=== PATIENT | male | born 1985 | race African-American/Black ===

== ENCOUNTER 2022-10-06 10:26 | Inpatient (IN) ==
[2022-10-06 11:32] LABS: Basophils # (auto) 0.03 K/uL (0-0.2); Basophils % (auto) 0.2 %; Eosinophils # (auto) 0.02 K/uL (0-0.50); Eosinophils % (auto) 0.2 %; Hematocrit (blood only) 41.4 % (42.0-52.0); Hemoglobin 13.9 g/dl (14.0-18.0); Immature Granulocytes # (auto) 0.07 K/uL (0.01-0.20); Immature Granulocytes % (auto) 0.6 %; Lymphocytes # (auto) 1.34 K/uL (1.2-3.4); Lymphocytes % (auto) 10.7 %; Mean Corpuscular Hemoglobin 28.7 pg (25.0-34.0); Mean Corpuscular Hgb Conc 33.6 g/dL (32.0-36.0); Mean Corpuscular Volume 85.4 fL (80.0-100.0); Mean Platelet Volume 11.8 fL (9.4-12.4); Monocytes # (auto) 1.07 K/uL (0.11-0.59); Monocytes % (auto) 8.5 %; Neutrophils % (auto) 79.8 %; Platelet Count 236 K/uL (130-400); RDW Coefficient of Variation 14.5 % (11.5-14.5); RDW Standard Deviation 45.1 fL (36.4-46.3); Red Blood Count 4.85 M/uL (4.70-6.10); White Blood Count 12.53 K/ul (4.8-10.8)
[2022-10-06 11:36] LABS: Partial Thromboplastin Ratio 1.1; Partial Thromboplastin Time 29.9 Seconds (21.0-31.0)
[2022-10-06 11:51] LABS: Alanine Aminotransferase 30 U/L (7-52); Albumin Globulin Ratio 1.1 (0.9-2); Alkaline Phosphatase 69 U/L (34-104); Anion Gap 9 (3-11); Aspartate Aminotransferase 18 U/L (13-39); BUN Creatinine Ratio 10.9 (10-20); Bilirubin,Total 1.7 mg/dl (0.2-1.0); Blood Urea Nitrogen 19 mg/dl (6-23); Calcium 10.2 mg/dl (8.6-10.3); Carbon Dioxide 28 mmol/L (21-32); Chloride 100 mmol/L (98-107); Est GFR (African American) 56.4 ml/min; Est GFR (Non-African American) 48.7 ml/min; Globulin 3.8 gm/dl (2.5-4.0); Glucose 108 mg/dl (70-99(Fasting)); Potassium 3.1 mmol/L (3.5-5.1); Sodium 137 mmol/L (136-145); Total Protein 7.8 gm/dl (6.0-8.3)
--- NOTE | 2022-10-06 12:11 | XRay Report ---
XR chest 1V not portable CLINICAL HISTORY: swollen TECHNIQUE: Single frontal radiograph of the chest was obtained. Comparison: None available at the time of this dictation. FINDINGS: No lines and tubes are seen. The cardiomediastinal silhouette is normal. The lungs are clear. No evid ence of pleural effusion or pneumothorax. IMPRESSION: No acute chest disease. ACT 112: Negative or not required by law. Electronically signed by: Aguilar Jacobson M.D. 10/06/2022 12:09 PM
[2022-10-06] MEDS ORDERED: methylPREDNISolone 125 MG/2 ML VIAL IV STA (13:17)
[2022-10-06] MEDS ORDERED: SODIUM CHLORIDE 0.9% 500 ML IV ONE ×2 (13:17→15:46)
[2022-10-06] MEDS ORDERED: oxyCODONE/ACETAMINOPHEN 5mg/325mg TAB PO STA (13:17)
--- NOTE | 2022-10-06 13:22 | Emergency Department Note ---
Impression & Plan Hypertensive urgency, Hypokalemia, Acute renal failure, Gout attack ED Provider Note NAME: JULIO GALINDO AGE: 37 SEX: M ARRIVES VIA: Walk-In INFORMANT: Patient ED PROVIDER(S): Monty Lopes MD CHIEF COMPLAINT: Left knee pain and ankle pain, gout PLAN: Disposition: Home MEDICAL DECISION MAKING: The patient is a 37-year-old gentleman with a past medical history hypertension, gout who presents to the emergency department via walk-in for evaluation of left knee pain and ankle pain which has been worsening and feels reminiscent of his flares of gout. The patient reports his left knee began to hurt on Thursday and his left ankle began to hurt last night. Patient reports he is able to walk but it is painful. He denies any fevers, chills, cough congestion, GI/ symptoms. He reports he has been out of his medications over the past month which he believes is lisinopril and amlodipine for his blood pressure and allopurinol for his gout. Patient reports he recently relocated to the [facility] in May moving from [place] where he had been on assistance there and has yet to obtain health insurance. He was requesting to meet with the onsite case manager. Our onsite case manager did meet with him it was understood that he is unsure of if he is going to stay in the area. Thus, his options are limited but he may be able to follow-up with [facility]. Of note, the patient did arrive to emergency department during time of high volume, acuity and prolonged emergency department waiting times. Critical pathways initiated from triage. On my evaluation the patient is in no acute distress, with blood pressure 220/150s and heart in the 100s and vital signs otherwise stable. He appears clinically dry. He has mild swelling and warmth of the left knee and less so warmth and swelling of the lateral malleolus of the left ankle. He has full range of motion of the left knee without difficulty though some discomfort. He has limited range of motion of left ankle due to pain. Distal PMS is intact. EKG without overt acute ischemia. Chest x-ray negative for acute cardiopulmonary process. WBC 12.5K nonspecific. H/H 13.9/41, without prior values for comparison. Platelets within normal limits. Chemistry without metabolic acidosis. Potassium 3.1 electrolytes otherwise unremarkable. Creatinine 1.75 without prior for comparison. Total room 1.7, nonspecific as LFTs otherwise normal. Patient's uric acid is elevated at 10.1 consistent with patient's history of gout in his flare of symptoms. Plain films of the left knee and ankle negative for fracture or dislocation. With soft tissue swelling noted. The patient was reevaluated and his results were discussed with his partner at the bedside. We did discuss his creatinine which per our discussion may be approximate to his prior values though cannot say definitively. He reports he had been told several months ago during a hospital visit in [place] that his kidneys were not normal and that he should hydrate more but he does not any know any more details about this. We were able to obtain his recent prescriptions from for those of his bottles that a family member texted and the patient is on 40 mg of lisinopril daily, 10 mg of atorvastatin daily, and 5 mg of amlodipine daily. The patient's blood pressure remained persistently elevated in the 210s-220s-/130-150s albeit asymptomatic. We did discuss option for admission versus close outpatient follow-up with [facility]. However we did recognize that this may be challenging given his current status without insurance and establish primary care. Ultimately the patient and his partner agree with plan for admission for hypertensive urgency and further evaluation of the patient's renal insufficiency. Treatment initiated with IV labetalol. Oral potassium supplementation provided. The patient had also been treated for his gout with Solu-Medrol and Percocet for pain. Case was discussed with Dr. Turner, [facility] hospitalist, who will evaluate the patient for admission. Triage Nursing notes reviewed and agree them. Prior/outside medical records reviewed Vital Signs: reviewed Differential diagnosis: Fracture, subluxation, dislocation, contusion, ligamentous injury, neurovascular, compartment syndrome, rhabdomyolysis, as well as other pathologies. ER treatment provided: See below. Diagnostics interpreted by me: ECG: Sinus tachycardia, 106 bpm, no ectopy, LVH, no overt ST elevation or depression, QTc 462, QRS 98 Cardiac Monitoring: An order for continuous cardiac monitoring was placed and demonstrated Sinus tachycardia, 106 bpm, no ectopy Laboratory studies: See below Imaging studies: See below Consultation(s): Case was discussed with Sarwat Nieves hospitalist, who will evaluate the patient for admission. HPI: The patient is a 37-year-old gentleman with a past medical history hypertension, gout who presents to the emergency department via walk-in for evaluation of left knee pain and ankle pain which has been worsening and feels reminiscent of his flares of gout. The patient reports his left knee began to hurt on Thursday and his left ankle began to hurt last night. Patient reports he is able to walk but it is painful. He denies any fevers, chills, cough congestion, GI/ symptoms. He reports he has been out of his medications over the past month which he believes is lisinopril and amlodipine for his blood pressure and allopurinol for his gout. Patient reports he recently relocated to the [facility] in May moving from [place] where he had been on assistance there and has yet to obtain health insurance. He was requesting to meet with the onsite case manager. Our onsite case manager did meet with him it was under stood that he is unsure of if he is going to stay in the area. Thus, his options are limited but he may be able to follow-up with [facility]. ROS: See above HPI for pertinent positives & negatives. A total of 10 systems reviewed and were otherwise negative. VITALS:See Below PHYSICAL EXAMINATION: GENERAL: Awake, alert, well-appearing, in no distress HENT: Normocephalic, atraumatic. Oropharynx with dry mucous membranes and otherwise unremarkable. EYES: Normal conjunctiva. Sclera non-icteric. NECK: Supple. No nuchal rigidity. FROM. No JVD. RESPIRATORY: Clear to auscultation. CARDIAC: Regular rate, normal rhythm. Extremities warm and well perfused. Pulses equal. ABDOMEN: Soft, non-distended. No tenderness to palpation. No rebound or guarding. No masses. RECTAL: Deferred. MUSCULOSKELETAL: Chest examination reveals no tenderness. The back is symmetrical on inspection without obvious abnormality. There is no CVA tende rness to palpation. mild swelling and warmth of the left knee and less so warmth and swelling of the lateral malleolus of the left ankle. He has full range of motion of the left knee without difficulty though some discomfort. He has limited range of motion of left ankle due to pain. Distal PMS is intact. LOWER EXTREMITIES: Calves are equal size bilaterally and non-tender. No edema. No discoloration. NEURO: Normal sensorium. No sensory or motor deficits noted. SKIN: No rash or jaundice noted. ED COURSE: Critical Care: I have personally spent greater than 35 minutes of critical care time in the direct management of this patient. This includes bedside care, interpretation of diagnostic studies, and testing, discussion with consultants, patient, and family members, and other required patient management activities. This 35 minutes is in excess of all separately billable procedures. Monty Lopes MD Past Med/Surg History Medical History Gout Hyperlipidemia Hypertension Surgical History No pertinent past surgical history Family History Other Family history non-contributory Social History Smoking Status: Never smoker Do You Dip or Chew Tobacco: No; Hx Alcohol Use: No Hx Substance Use: No Preferred Language: Hungarian Current Living Situation: Spouse current occupational status: employed Feels Safe at Home: Yes Allergies Allergies Allergy/AdvReac Type Severity Reaction Status Date / Time No Known Allergies Allergy Unverified 10/06/22 13:58 Home Meds Home Medications Medication Instructions Recorded Confirmed allopurinol 300 mg tablet 300 mg PO DAILY 10/06/22 10/06/22 amlodipine 5 mg tablet 5 mg PO DAILY 10/06/22 10/06/22 atorvastatin 20 mg tablet 20 mg PO DAILY 10/06/22 10/06/22 lisinopril 40 mg tablet 40 mg PO DAILY 10/06/22 10/06/22 Results & Data (ED) Vital Signs Vital Signs - 24 hr 10/06/22 10:43 10/06/22 13:44 10/06/22 15:37 Temperature 36.8 C Temperature Source Oral Pulse Rate 107 H Pulse Rate [Apical] 89 102 H Respiratory Rate 18 16 Blood Pressure 229/153 H Blood Pressure [Right Arm] 218/134 H Blood Pressure Mean 178 Blood Pressure Mean [Right Arm] 162 Blood Pressure Position Sitting Pulse Oximetry 98 98 96 Oxygen Delivery Method Room Air Room Air Room Air Sepsis Recent Fever Within 48 Hours No Sepsis New/Unexplained Change in Mental Status No Sepsis Action Taken by Nursing No Action Required 10/06/22 16:43 10/06/22 17:00 10/06/22 17:22 Temperature Temperature Source Pulse Rate 100 H 97 H Pulse Rate [Apical] 97 H Respiratory Rate 18 Blood Pressure 216/139 H 208/144 H Blood Pressure [Right Arm] 208/144 H Blood Pressure Mean Blood Pressure Mean [Right Arm] 165 Blood Pressure Position Pulse Oximetry 98 Oxygen Delivery Method Room Air Sepsis Recent Fever Within 48 Hours Sepsis New/Unexplained Change in Mental Status Sepsis Action Taken by Nursing 10/06/22 17:26 Temperature Temperature Source Pulse Rate Pulse Rate [Apical] Respiratory Rate Blood Pressure Blood Pressure [Right Arm] Blood Pressure Mean Blood Pressure Mean [Right Arm] Blood Pressure Position Pulse Oximetry Oxygen Delivery Method Room Air Sepsis Recent Fever Within 48 Hours Sepsis New/Unexplained Change in Mental Status Sepsis Action Taken by Nursing Laboratory Data Attestation: I reviewed the patient's lab results. 10/06/22 11:10 10/06/22 11:10 Lab Results 10/06/22 10/06/22 10/06/22 Range/Units 11:10 11:10 11:10 WBC 12.53 H (4.8-10.8) K/ul RBC 4.85 (4.70-6.10) M/uL Hgb 13.9 L (14.0-18.0) g/dl Hct 41.4 L (42.0-52.0) % MCV 85.4 (80.0-100.0) fL MCH 28.7 (25.0-34.0) pg MCHC 33.6 (32.0-36.0) g/dL RDW Std Deviation 45.1 (36.4-46.3) fL RDW Coeff of Larry 14.5 (11.5-14.5) % Plt Count 236 (130-400) K/uL MPV 11.8 (9.4-12.4) fL Immature Gran % (Auto) 0.6 % Neut % (Auto) 79.8 % Lymph % (Auto) 10.7 % Lawrence % (Auto) 8.5 % Eos % (Auto) 0.2 % Baso % (Auto) 0.2 % Neut # (Auto) 10.00 H (1.40-6.50) K/uL Lymph # (Auto) 1.34 (1.2-3.4) K/uL Lawrence # (Auto) 1.07 H (0.11-0.59) K/uL Eos # (Auto) 0.02 (0-0.50) K/uL Baso # (Auto) 0.03 (0-0.2) K/uL Immature Gran # (Auto) 0.07 (0.01-0.20) K/uL APTT 29.9 (21.0-31.0) Seconds PTT Ratio 1.1 Sodium 137 (136-145) mmol/L Potassium 3.1 L (3.5-5.1) mmol/L Chloride 100 (98-107) mmol/L Carbon Dioxide 28 (21-32) mmol/L Anion Gap 9 (3-11) BUN 19 (6-23) mg/dl Creatinine 1.75 H (0.6-1.4) mg/dl Est Cr Clr Drug Dosing Not Reportable Est GFR ( Amer) 56.4 ml/min Est GFR (Non-Af Amer) 48.7 ml/min BUN/Creatinine Ratio 10.9 (10-20) Glucose 108 H (70-99(Fasting)) mg/dl Uric Acid 10.1 H (2.6-7.2) mg/dl Calcium 10.2 (8.6-10.3) mg/dl Phosphorus 2.4 L (2.5-4.9) mg/dl Magnesium 1.9 (1.7-2.4) mg/dl Total Bilirubin 1.7 H (0.2-1.0) mg/dl AST 18 (13-39) U/L ALT 30 (7-52) U/L Alkaline Phosphatase 69 (34-104) U/L Total Protein 7.8 (6.0-8.3) gm/dl Albumin 4.0 (3.4-5.0) gm/dl Globulin 3.8 (2.5-4.0) gm/dl Albumin/Globulin Ratio 1.1 (0.9-2) TSH (0.300-4.500) uIu/ml 10/06/22 Range/Units 11:10 WBC (4.8-10.8) K/ul RBC (4.70-6.10) M/uL Hgb (14.0-18.0) g/dl Hct (42.0-52.0) % MCV (80.0-100.0) fL MCH (25.0-34.0) pg MCHC (32.0-36.0) g/dL RDW Std Deviation (36.4-46.3) fL RDW Coeff of Larry (11.5-14.5) % Plt Count (130-400) K/uL MPV (9.4-12.4) fL Immature Gran % (Auto) % Neut % (Auto) % Lymph % (Auto) % Lawrence % (Auto) % Eos % (Auto) % Baso % (Auto) % Neut # (Auto) (1.40-6.50) K/uL Lymph # (Auto) (1.2-3.4) K/uL Lawrence # (Auto) (0.11-0.59) K/uL Eos # (Auto) (0-0.50) K/uL Baso # (Auto) (0-0.2) K/uL Immature Gran # (Auto) (0.01-0.20) K/uL APTT (21.0-31.0) Seconds PTT Ratio Sodium (136-145) mmol/L Potassium (3.5-5.1) mmol/L Chloride (98-107) mmol/L Carbon Dioxide (21-32) mmol/L Anion Gap (3-11) BUN (6-23) mg/dl Creatinine (0.6-1.4) mg/dl Est Cr Clr Drug Dosing Est GFR ( Amer) ml/min Est GFR (Non-Af Amer) ml/min BUN/Creatinine Ratio (10-20) Glucose (70-99(Fasting)) mg/dl Uric Acid (2.6-7.2) mg/dl Calcium (8.6-10.3) mg/dl Phosphorus (2.5-4.9) mg/dl Magnesium (1.7-2.4) mg/dl Total Bilirubin (0.2-1.0) mg/dl AST (13-39) U/L ALT (7-52) U/L Alkaline Phosphatase (34-104) U/L Total Protein (6.0-8.3) gm/dl Albumin (3.4-5.0) gm/dl Globulin (2.5-4.0) gm/dl Albumin/Globulin Ratio (0.9-2) TSH 1.618 (0.300-4.500) uIu/ml Administered Medications Discontinued Medications Sodium Chloride (Nss) 500 mls @ 999 mls/hr IV .Q31M ONE Stop: 10/06/22 13:47 Last Infusion: 10/06/22 14:16 Dose: 0 mls/hr Documented By: Admin: 10/06/22 13:37 Dose: 999 mls/hr Documented By: JERRY Sodium Chloride (Nss) 500 mls @ 999 mls/hr IV .Q31M ONE Stop: 10/06/22 16:16 Last Admin: 10/06/22 16:52 Dose: 999 mls/hr Documented By: ANDREWS Labetalol HCl (Labetalol Hcl Iv 5 Mg/Ml 20ml) 10 mg IV NOW STA Stop: 10/06/22 15:47 Last Admin: 10/06/22 17:14 Dose: Not Given Documented By: ANDREWS Labetalol HCl (Labetalol Hcl Iv 5 Mg/Ml 20ml) 20 mg IV NOW STA Stop: 10/06/22 16:40 Last Admin: 10/06/22 16:43 Dose: 20 mg Documented By: ANDREWS Co-signed By: SHELLY Methylprednisolone (Methylprednisolone 125 Mg/2 Ml Vial) 125 mg IV NOW STA Stop: 10/06/22 13:18 Last Admin: 10/06/22 13:37 Dose: 125 mg Documented By: JERRY Oxycodone/Acetaminophen (Oxycodone/Acetaminophen 5mg/325mg Tab) 1 tab PO NOW STA Stop: 10/06/22 13:18 Last Admin: 10/06/22 13:37 Dose: 1 tab Documented By: JERRY Potassium Chloride (Potassium Chloride Crtab 20 Meq Tabcr) 40 meq PO NOW STA Stop: 10/06/22 15:51 Last Admin: 10/06/22 16:52 Dose: 40 meq Documented By: ANDREWS Imaging Data Radiologist's Impression: Chest X-Ray 10/06/22 10:45 XR chest 1V not portable CLINICAL HISTORY: swollen TECHNIQUE: Single frontal radiograph of the chest was obtained. Comparison: None available at the time of this dictation. FINDINGS: No lines and tubes are seen. The cardiomediastinal silhouette is normal. The lungs are clear. No evidence of pleural effusion or pneumothorax. IMPRESSION: No acute chest disease. ACT 112: Negative or not required by law. Electronically signed by: Aguilar Jacobson M.D. 10/06/2022 12:09 PM Ankle X-Ray 10/06/22 13:17 LEFT ANKLE 3 VIEWS CLINICAL HISTORY: Left ankle pain and swelling. FINDINGS: 3 views of the left ankle are obtained. No prior studies are available for comparison at the time of dictation. The skeletal structures are well mineralized. No fracture is seen. The ankle mortise is intact. There is no joint effusion. Soft tissue edema is present throughout the left lower extremity, greatest around the ankle joint. IMPRESSION: Soft tissue swelling with no acute bony abnormality identified. Electronically signed by: Kenneth Wong M.D. 10/06/2022 2:14 PM Knee X-Ray 10/06/22 13:17 XR knee LT 3V CLINICAL HISTORY: pain swelling, gout TECHNIQUE: 3 views of the left knee were obtained. Comparison: None available at the time of this dictation. FINDINGS: There is no evidence of an acute fracture. Joint spaces are well-preserved. No joint effusion is seen. Soft tissue swelling is seen about the knee. IMPRESSION: Soft tissue swelling without evidence of underlying bony abnormality. ACT 112: Negative or not required by law. Electronically signed by: Aguilar Jacobson M.D. 10/06/2022 2:10 PM Discharge Plan Visit Data Chief Complaint: Knee Injury/Pain Stated Complaint: KNEE PAIN, SWOLLEN ED Provider: Monty Lopes Discharge Problem: Hypertensive urgency, Hypokalemia, Acute renal failure, Gout attack Patient Disposition: Admitted As Inpatient Discharge Instructions Interventions: ED Discharge Assessment Last Done: 10/06/22 17:26 Forms Stand Alone Forms: Work/School Release (ED), [facility] [employer] Prescriptions Prescriptions: No Action atorvastatin 20 mg Tablet 20 mg PO DAILY amlodipine 5 mg Tablet 5 mg PO DAILY allopurinol 300 mg Tablet 300 mg PO DAILY lisinopril 40 mg Tablet 40 mg PO DAILY Referrals Referrals: PCP,NO [Primary Care Provider] - Gout attack Qualifiers: Gout site: multiple sites Gout etiology: unspecified cause Qualified Code(s): M10.9 - Gout, unspecified
--- NOTE | 2022-10-06 14:12 | XRay Report ---
XR knee LT 3V CLINICAL HISTORY: pain swelling, gout TECHNIQUE: 3 views of the left knee were obtained. Comparison: None available at the time of this dictation. FINDINGS: There is no evidence of an acute fracture. Joint spaces are well-preserved. No joint effusion is seen . Soft tissue swelling is seen about the knee. IMPRESSION: Soft tissue swelling without evidence of underlying bony abnormality. ACT 112: Negative or not required by law. Electronically signed by: Aguilar Jacobson M.D. 10/06/2022 2:10 PM
--- NOTE | 2022-10-06 14:16 | XRay Report ---
LEFT ANKLE 3 VIEWS CLINICAL HISTORY: Left ankle pain and swelling. FINDINGS: 3 views of the left ankle are obtained. No prior studies are available for comparison at th e time of dictation. The skeletal structures are well mineralized. No fracture is seen. The ankle mor tise is intact. There is no joint effusion. Soft tissue edema is present throughout the left lower ex tremity, greatest around the ankle joint. IMPRESSION: Soft tissue swelling with no acute bony abnormality identified. Electronically signed by: Kenneth Wong M.D. 10/06/2022 2:14 PM
[2022-10-06 14:20] LABS: Uric Acid 10.1 mg/dl (2.6-7.2)
[2022-10-06] MEDS ORDERED: LABETALOL HCL IV 5 MG/ML 20ML IV STA ×3 (15:46→17:45)
[2022-10-06] MEDS ORDERED: POTASSIUM CHLORIDE CRTAB 20 MEQ TABCR PO STA (15:50)
--- NOTE | 2022-10-06 16:08 | History & Physical Report ---
Date of Service October 06, 2022 Assessment & Plan (1) Hypertensive urgency: Plan: Labetalol started in the ER. Patient has been noncompliant with his lisinopril 40mg and amlodipine 5mg per home regimen for the past month. He denies any chest pain or trouble breathing and denies headache. No stroke symptoms present. He does have evidence of acute kidney injury, however, baseline creatinine is unknown. ACEI contraindicated in setting of renal failure but aniceto l restart CCB now. Goal BP lowered to <180 systolic in the next few hours. Cont labetalol and other parenteral agents to help with this. If no improvement, consider nitroglycerin paste to chest wall. Would strongly consider the addition of a low dose diuretic to lisinopril at discharge, preferably one that is listed on [employer] $4 list given financial restrictions. (2) Gout attack: Plan: Pain improved with IV solumedrol in the ER and percocet. Will cont with prednisone 60mg Po daily with taper over 10 days, and oxycodone PRN pain. Cont with scheduled Tylenol. Follow-up with primary care and restart allopurinol at discharge with low purine diet modifications. (3) Acute renal failure: Plan: Unknown baseline creatinine with current creatinine 1.75. Hydrate with IVF overnight. Repeat BMP in am. (4) Hypokalemia: Plan: Replace and repeat in am. (5) Hyperlipidemia: Plan: h/o atorvastatin usage. Hold on restarting this for now to minimize any medications interactions or side effects while initiating acute treatment. Recommend establishing care in the area and following up with a primary care physician at discharge. Will perform screening for diabetes with A1C given risk factors for this including obesity, hypertension and hyperlipidemia. Padma Full Code Dispo-to PCU I spent a total of75 minutes coordinating, documenting, and providing care for this patient excluding time spent in the performance of separately billed services DO [facility] Hospitalist History of Present Illness Chief Complaint: knee injury/pain Primary Care Provider: NO PCP 37 yo M with a h/o gout and hypertension presents with worsening left knee and ankle pain consistent with a gout flare over the past 24 hours. He is unable to walk on the left foot 2/2 pain. He reports being out of his lisinopril and amlodipine in the past month. He has also been out of his allopurinol. Blood pressure is currently 218/134 and labetalol 10mg IV has been ordered. This wasn't given when I arrived in the room and recheck of his BP was 228/152 on the right arm with 12 size cuff, 205/131 on the left arm (initial BP taken with a cuff too small). He was given solumedrol 125mg IV, Percocet 5/325mg PO x 1 tab, and 500cc NSS in the ER and reports feeling the pain is much improved. States that he has noticed increased ROM of his left knee since arriving in the ER. 2-3 episodes of loose stool overnight but nothing today denies blood per rectum. denies NOVOA, chest pain, fevers, chills denies chest pain, shortness of breath. Medications were reviewed. He did look up the number to his [employer], however, this happened to be his friend's number instead. We discussed the option of the [employer] $4 list and he verbalized appreciation. Allergies Allergy/AdvReac Type Severity Reaction Status Date / Time No Known Allergies Allergy Unverified 10/06/22 13:58 Home Medications Medication Instructions Recorded Confirmed Type allopurinol 300 mg tablet 300 mg PO DAILY 10/06/22 10/06/22 History amlodipine 5 mg tablet 5 mg PO DAILY 10/06/22 10/06/22 History atorvastatin 20 mg tablet 20 mg PO DAILY 10/06/22 10/06/22 History lisinopril 40 mg tablet 40 mg PO DAILY 10/06/22 10/06/22 History Past Med/Surg History Medical History Gout Hyperlipidemia Hypertension Surgical History No pertinent past surgical history Family History Other Family history non-contributory Social History Smoking Status: Never smoker Do You Dip or Chew Tobacco: No; Hx Alcohol Use: No Hx Substance Use: No Preferred Language: Filipino Current Living Situation: Spouse current occupational status: employed Feels Safe at Home: Yes Review of Systems Review of Systems: All systems were reviewed and negative except as indicated on HPI above. Physical Exam Physical Exam: CONSTITUTIONAL: WNWD, vitals as above, generally well-appearing, NAD EYES: normal conjunctivae, no scleral icterus ENT: external ear and nose normal, MMM NECK: trachea midline RESPIRATORY: clear to auscultation bilaterally, no crackles, rales or wheezes, normal respiratory effort CARDIOVASCULAR: regular rate and rhythm, S1 and 2 heard without murmurs, gallops or rubs, no JVD, no peripheral edema CHEST: inspection of chest was normal GASTROINTESTINAL: soft, nontender, ND, no guarding MUSCULOSKELETAL: strength 5/5 throughout, head is normocephalic and atraumatic, L KNEE: no TTP of the joint with no gross effusion present, minimal limitation in flexion/extension (can bed around 45 degrees in reclined position) L ANKLE: erythema around the lateral malleolus, generalized swelling of the ankle. No 1MTP pain, no other joints are painful or swollen in the left foot, limited ROM in all planes motion of left ankle. Cannot bear weight 2/2 pain. SKIN: warm and dry, as noted above. NEUROLOGIC: CN 2-12 grossly intact, no sensory deficit, normal cognition, normal speech, no tremor PSYCHIATRIC: alert cooperative and oriented to person, place and time. Euthymic mood, makes good eye contact, language grossly intact, recent and remote memory grossly intact. Results & Data Results & Data Vital Signs (Past 12 Hours) Vital Signs Temp Pulse Pulse Resp BP BP Pulse Ox 10/06/22 15:37 102 H 218/134 H 96 10/06/22 13:44 89 16 98 10/06/22 10:43 36.8 C 107 H 18 229/153 H 98 O2 Del Method 10/06/22 15:37 Room Air 10/06/22 13:44 Room Air 10/06/22 10:43 Room Air Laboratory Results Short CBC 10/06/22 Range/Units 11:10 WBC 12.53 H (4.8-10.8) K/ul Hgb 13.9 L (14.0-18.0) g/dl Hct 41.4 L (42.0-52.0) % Plt Count 236 (130-400) K/uL BMP 10/06/22 11:10 Sodium 137 Potassium 3.1 L Chloride 100 Carbon Dioxide 28 BUN 19 Creatinine 1.75 H Glucose 108 H Calcium 10.2 Liver Function 10/06/22 Range/Units 11:10 Total Bilirubin 1.7 H (0.2-1.0) mg/dl AST 18 (13-39) U/L ALT 30 (7-52) U/L Alkaline Phosphatase 69 (34-104) U/L Albumin 4.0 (3.4-5.0) gm/dl Diagnostic Findings Chest X-Ray 10/06/22 10:45 XR chest 1V not portable CLINICAL HISTORY: swollen TECHNIQUE: Single frontal radiograph of the chest was obtained. Comparison: None available at the time of this dictation. FINDINGS: No lines and tubes are seen. The cardiomediastinal silhouette is normal. The lungs are clear. No evidence of pleural effusion or pneumothorax. IMPRESSION: No acute chest disease. ACT 112: Negative or not required by law. Electronically signed by: Aguilar Jacobson M.D. 10/06/2022 12:09 PM Ankle X-Ray 10/06/22 13:17 LEFT ANKLE 3 VIEWS CLINICAL HISTORY: Left ankle pain and swelling. FINDINGS: 3 views of the left ankle are obtained. No prior studies are available for comparison at the time of dictation. The skeletal structures are well mineralized. No fracture is seen. The ankle mortise is intact. There is no joint effusion. Soft tissue edema is present throughout the left lower extremity, greatest around the ankle joint. IMPRESSION: Soft tissue swelling with no acute bony abnormality identified. Electronically signed by: Kenneth Wong M.D. 10/06/2022 2:14 PM Knee X-Ray 10/06/22 13:17 XR knee LT 3V CLINICAL HISTORY: pain swelling, gout TECHNIQUE: 3 views of the left knee were obtained. Comparison: None available at the time of this dictation. FINDINGS: There is no evidence of an acute fracture. Joint spaces are well-preserved. No joint effusion is seen. Soft tissue swelling is seen about the knee. IMPRESSION: Soft tissue swelling without evidence of underlying bony abnormality. ACT 112: Negative or not required by law. Electronically signed by: Aguilar Jacobson M.D. 10/06/2022 2:10 PM Medications Administered Current Inpatient Medications Sodium Chloride (Nss) 500 mls @ 999 mls/hr IV .Q31M ONE Stop: 08/21/23 16:16 (2) Gout attack Gout etiology: unspecified cause Gout site: multiple sites Qualified Code(s): M10.9 - Gout, unspecified (3) Acute renal failure Acute renal failure type: unspecified Qualified Code(s): N17.9 - Acute kidney failure, unspecified (5) Hyperlipidemia Hyperlipidemia type: unspecified Qualified Code(s): E78.5 - Hyperlipidemia, unspecified
[2022-10-06 17:06] LABS: Magnesium 1.9 mg/dl (1.7-2.4); Phosphorus 2.4 mg/dl (2.5-4.9)
[2022-10-06] MEDS ORDERED: NITROGLYCERIN 2% OINTMENT 30GM TUBE EXT SCH (17:45)
[2022-10-06] MEDS ORDERED: MoRPHine SULFATE 4 MG/ML 1 ML CARP\\VIAL IV PRN (18:41)
[2022-10-06] MEDS ORDERED: NIFEdipine EXTENDED REL 30 MG TABCR PO STA (18:41)
[2022-10-06] MEDS ORDERED: ONDANSETRON INJ 2 MG/ML 2 ML VIAL IV PRN (18:41)
[2022-10-06] MEDS ORDERED: POLYETHYLENE (MIRALAX) 17 GM PACK PO PRN (18:41)
[2022-10-06] MEDS ORDERED: NITROGLYCERIN 2% OINTMENT 30GM TUBE EXT ONE (20:18)
[2022-10-06] MEDS: D5W AND 1/2NSS + 20MEQ KCL 20 MEQ/1,000 ML BAG IV SCH (20:22)
[2022-10-06] MEDS ORDERED: cloNIDine HCL 0.1 MG TAB PO ONE ×3 (20:54→22:38)
[2022-10-06 22:09] LABS: Appearance Urine Clear (Clear); Bacteria Urine Automated Negative (Negative); Bilirubin Urine Negative (Negative); Blood Urine 2+ (Negative); Color Urine Yellow; Epithelial Cell Urine Auto >30 /lpf (0-5); Glucose Urine UA Negative (Negative); Ketones Urine Trace (Negative); Leukocyte Esterase Urine Negative (Negative); Nitrite Urine Negative (Negative); Protein Urine 4+ (Negative); Specific Gravity Urine 1.028 (1.000-1.030); Urobilinogen Urine Negative (Negative); pH Urine 5.5 (4.5-7.5)
[2022-10-06] MEDS: ACETAMINOPHEN 500 MG TAB PO SCH (22:31)
[2022-10-07] MEDS: NITROGLYCERIN 2% OINTMENT 30GM TUBE EXT SCH ×4 (02:25→17:56)
[2022-10-07] MEDS: D5W AND 1/2NSS + 20MEQ KCL 20 MEQ/1,000 ML BAG IV SCH (04:18)
[2022-10-07] MEDS: ACETAMINOPHEN 500 MG TAB PO SCH ×3 (05:53→21:10)
--- NOTE | 2022-10-07 05:55 | Electrocardiogram Report ---
Test Reason : Blood Pressure : / mmHG Vent. Rate : 106 BPM Atrial Rate : 106 BPM P-R Int : 152 ms QRS Dur : 098 ms QT Int : 348 ms P-R-T Axes : 042 012 023 degrees QTc Int : 462 ms Sinus tachycardia Minimal voltage criteria for LVH, may be normal variant ( Mildred product ) Borderline ECG No previous ECGs available Confirmed by Tayo Hill ([id number]) on 10/07/2022 5:54:36 AM Referred By: Confirmed By:Tayo Hill
[2022-10-07 07:29] LABS: Hematocrit (blood only) 36.8 % (42.0-52.0); Hemoglobin 12.2 g/dl (14.0-18.0); Mean Corpuscular Hemoglobin 28.5 pg (25.0-34.0); Mean Corpuscular Hgb Conc 33.2 g/dL (32.0-36.0); Mean Platelet Volume 11.8 fL (9.4-12.4); Platelet Count 201 K/uL (130-400); RDW Coefficient of Variation 14.6 % (11.5-14.5); RDW Standard Deviation 46.5 fL (36.4-46.3); Red Blood Count 4.28 M/uL (4.70-6.10); White Blood Count 13.23 K/ul (4.8-10.8)
[2022-10-07 07:48] LABS: BUN Creatinine Ratio 14.4 (10-20); Calcium 9.4 mg/dl (8.6-10.3); Creatinine Clr Calc Pharmacy 77.7 ml/min; Est GFR (African American) 56.8 ml/min; Potassium 3.5 mmol/L (3.5-5.1)
--- NOTE | 2022-10-07 08:28 | Hospitalist Progress Note ---
Date of Service October 07, 2022 Assessment & Plan (1) Hypertensive urgency: Plan: As per admitting provider w/addendum Labetalol started in the ER. Patient has been noncompliant with his lisinopril 40mg and amlodipine 5mg per home regimen for the past month. He denies any chest pain or trouble breathing and denies headache. No stroke symptoms present. He does have evidence of acute kidney injury, however, baseline creatinine is unknown. ACEI contraindicated in setting of renal failure but will restart CCB now. Received clonidine overnight nitroglycerin paste to chest wall Current SBP 150s, cont. to closely monitor consider the addition of a low dose diuretic to lisinopril at discharge, preferably one that is listed on [employer] $4 list given financial restrictions. (2) Gout attack: Plan: Pain improved with IV solumedrol in the ER and percocet. Will cont with prednisone 60mg Po daily with taper over 10 days, and oxycodone PRN pain. Cont with scheduled Tylenol. Follow-up with primary care and restart allopurinol at discharge with low purine diet modifications. (3) Acute renal failure: Plan: Unknown baseline creatinine with creatinine 1.75 on admission. Received IVF on admission. Repeat BMP in am. (4) Hypokalemia: Plan: Replace and repeat in am. (5) Hyperlipidemia: Plan: h/o atorvastatin usage. Hold on restarting this for now to minimize any medications interactions or side effects while initiating acute treatment. Recommend establishing care in the area and following up with a primary care physician at discharge. Will perform screening for diabetes with A1C given risk factors for this including obesity, hypertension and hyperlipidemia. Padma Full Code Dispo-to PCU Admission and Anticipated Discharge Date Admission Date: October 06, 2022 Subjective Pt seen in follow up of uncontrolled hypertension, YAS, gout attack Currently laying in bed in NAD Cr 1.7 SBP in 150s L knee much improved, pt can move better He says his L foot is not as painful but he can't ambulate on it yet Denies any chest pain, shortness of breath or headache Inquiring about DC. He is new to the area- says he plans to stay here - will need pcp established Review of Systems Review of Systems: All systems reviewed & are unremarkable except as noted in Subjective Physical Exam Physical Exam: CONSTITUTIONAL: WNWD, in NAD EYES: normal conjunctivae, no scleral icterus ENT: external ear and nose normal, MMM NECK: supple RESPIRATORY: clear to auscultation bilaterally, no crackles, rales or wheezes, normal respiratory effort CARDIOVASCULAR: regular rate and rhythm, S1 and 2 heard without murmurs, gallops or rubs, no JVD, no peripheral edema CHEST: inspection of chest was normal GASTROINTESTINAL: soft, nontender, ND, no guarding MUSCULOSKELETAL: strength 5/5 throughout, head is normocephalic and atraumatic, L KNEE: no TTP of the joint with no gross effusion present, good ROM L ANKLE: minimal erythema around the lateral malleolus, minimal generalized swelling of the ankle. limited ROM. Cannot bear weight2/2 pain. SKIN: warm and dry NEUROLOGIC: alert oriented, answers appropriately, normal speech, moves extremities Results & Data Results & Data Vital Signs (Past 12 Hours) Vital Signs Temp Pulse Pulse Resp BP BP Pulse Ox 10/07/22 08:14 36.9 C 90 20 174/101 H 95 10/07/22 02:22 36.8 C 82 20 146/84 H 93 10/06/22 23:19 37.0 C 96 H 20 167/91 H 94 10/06/22 23:20 100 H 10/06/22 22:32 36.6 C 102 H 18 180/112 H 96 10/06/22 20:45 99 H 191/102 H 10/06/22 20:50 99 H 191/102 H O2 Del Method 10/07/22 08:14 Room Air 10/07/22 02:22 Room Air 10/06/22 23:19 Room Air 10/06/22 23:20 10/06/22 22:32 Room Air 10/06/22 20:45 10/06/22 20:50 Laboratory Results 10/07/22 10/07/22 10/06/22 Range/Units 06:20 06:20 21:10 WBC 13.23 H (4.8-10.8) K/ul RBC 4.28 L (4.70-6.10) M/uL Hgb 12.2 L (14.0-18.0) g/dl Hct 36.8 L (42.0-52.0) % MCV 86.0 (80.0-100.0) fL MCH 28.5 (25.0-34.0) pg MCHC 33.2 (32.0-36.0) g/dL RDW Std Deviation 46.5 H (36.4-46.3) fL RDW Coeff of Larry 14.6 H (11.5-14.5) % Plt Count 201 (130-400) K/uL MPV 11.8 (9.4-12.4) fL Immature Gran % (Auto) % Neut % (Auto) % Lymph % (Auto) % [place] % (Auto) % Eos % (Auto) % Baso % (Auto) % Neut # (Auto) (1.40-6.50) K/uL Lymph # (Auto) (1.2-3.4) K/uL [place] # (Auto) (0.11-0.59) K/uL Eos # (Auto) (0-0.50) K/uL Baso # (Auto) (0-0.2) K/uL Immature Gran # (Auto) (0.01-0.20) K/uL APTT (21.0-31.0) Seconds PTT Ratio Sodium 135 L (136-145) mmol/L Potassium 3.5 (3.5-5.1) mmol/L Chloride 102 (98-107) mmol/L Carbon Dioxide 27 (21-32) mmol/L Anion Gap 6 (3-11) BUN 25 H (6-23) mg/dl Creatinine 1.74 H (0.6-1.4) mg/dl Est Cr Clr Drug Dosing 77.7 Est GFR ( Amer) 56.8 ml/min Est GFR (Non-Af Amer) 49.0 ml/min BUN/Creatinine Ratio 14.4 (10-20) Glucose 131 H (70-99(Fasting)) mg/dl Uric Acid (2.6-7.2) mg/dl Calcium 9.4 (8.6-10.3) mg/dl Phosphorus (2.5-4.9) mg/dl Magnesium (1.7-2.4) mg/dl Total Bilirubin (0.2-1.0) mg/dl AST (13-39) U/L ALT (7-52) U/L Alkaline Phosphatase (34-104) U/L Total Protein (6.0-8.3) gm/dl Albumin (3.4-5.0) gm/dl Globulin (2.5-4.0) gm/dl Albumin/Globulin Ratio (0.9-2) TSH (0.300-4.500) uIu/ml Urine Color Urine Appearance (Clear) Urine pH (4.5-7.5) Ur Specific [place] (1.000-1.030) Urine Protein (Negative) Urine Glucose (UA) (Negative) Urine Ketones (Negative) Urine Blood (Negative) Urine Nitrite (Negative) Urine Bilirubin (Negative) Urine Urobilinogen (Negative) Ur Leukocyte Esterase (Negative) Urine WBC (Auto) (0-5) /hpf Urine RBC (Auto) (0-4) /hpf U Hyaline Cast (Auto) (0-5) /lpf U Epithel Cells (Auto) (0-5) /lpf Urine Bacteria (Auto) (Negative) Ur Renal Epithelial Cell Granular Casts (0) /lpf Ur Random Creatinine 250.0 mg/dl Ur Random Sodium 30 mmol/L 10/06/22 10/06/22 10/06/22 Range/Units 21:10 11:10 11:10 WBC (4.8-10.8) K/ul RBC (4.70-6.10) M/uL Hgb (14.0-18.0) g/dl Hct (42.0-52.0) % MCV (80.0-100.0) fL MCH (25.0-34.0) pg MCHC (32.0-36.0) g/dL RDW Std Deviation (36.4-46.3) fL RDW Coeff of Larry (11.5-14.5) % Plt Count (130-400) K/uL MPV (9.4-12.4) fL Immature Gran % (Auto) % Neut % (Auto) % Lymph % (Auto) % [place] % (Auto) % Eos % (Auto) % Baso % (Auto) % Neut # (Auto) (1.40-6.50) K/uL Lymph # (Auto) (1.2-3.4) K/uL [place] # (Auto) (0.11-0.59) K/uL Eos # (Auto) (0-0.50) K/uL Baso # (Auto) (0-0.2) K/uL Immature Gran # (Auto) (0.01-0.20) K/uL APTT (21.0-31.0) Seconds PTT Ratio Sodium 137 (136-145) mmol/L Potassium 3.1 L (3.5-5.1) mmol/L Chloride 100 (98-107) mmol/L Carbon Dioxide 28 (21-32) mmol/L Anion Gap 9 (3-11) BUN 19 (6-23) mg/dl Creatinine 1.75 H (0.6-1.4) mg/dl Est Cr Clr Drug Dosing Not Reportable Est GFR ( Amer) 56.4 ml/min Est GFR (Non-Af Amer) 48.7 ml/min BUN/Creatinine Ratio 10.9 (10-20) Glucose 108 H (70-99(Fasting)) mg/dl Uric Acid 10.1 H (2.6-7.2) mg/dl Calcium 10.2 (8.6-10.3) mg/dl Phosphorus 2.4 L (2.5-4.9) mg/dl Magnesium 1.9 (1.7-2.4) mg/dl Total Bilirubin 1.7 H (0.2-1.0) mg/dl AST 18 (13-39) U/L ALT 30 (7-52) U/L Alkaline Phosphatase 69 (34-104) U/L Total Protein 7.8 (6.0-8.3) gm/dl Albumin 4.0 (3.4-5.0) gm/dl Globulin 3.8 (2.5-4.0) gm/dl Albumin/Globulin Ratio 1.1 (0.9-2) TSH 1.618 (0.300-4.500) uIu/ml Urine Color Yellow Urine Appearance Clear (Clear) Urine pH 5.5 (4.5-7.5) Ur Specific [place] 1.028 (1.000-1.030) Urine Protein 4+ H (Negative) Urine Glucose (UA) Negative (Negative) Urine Ketones Trace H (Negative) Urine Blood 2+ H (Negative) Urine Nitrite Negative (Negative) Urine Bilirubin Negative (Negative) Urine Urobilinogen Negative (Negative) Ur Leukocyte Esterase Negative (Negative) Urine WBC (Auto) 1-5 (0-5) /hpf Urine RBC (Auto) 5-10 H (0-4) /hpf U Hyaline Cast (Auto) 5-10 H (0-5) /lpf U Epithel Cells (Auto) >30 H (0-5) /lpf Urine Bacteria (Auto) Negative (Negative) Ur Renal Epithelial Cell Not Reportable Granular Casts 1-5 H (0) /lpf Ur Random Creatinine mg/dl Ur Random Sodium mmol/L 10/06/22 10/06/22 Range/Units 11:10 11:10 WBC 12.53 H (4.8-10.8) K/ul RBC 4.85 (4.70-6.10) M/uL Hgb 13.9 L (14.0-18.0) g/dl Hct 41.4 L (42.0-52.0) % MCV 85.4 (80.0-100.0) fL MCH 28.7 (25.0-34.0) pg MCHC 33.6 (32.0-36.0) g/dL RDW Std Deviation 45.1 (36.4-46.3) fL RDW Coeff of Larry 14.5 (11.5-14.5) % Plt Count 236 (130-400) K/uL MPV 11.8 (9.4-12.4) fL Immature Gran % (Auto) 0.6 % Neut % (Auto) 79.8 % Lymph % (Auto) 10.7 % [place] % (Auto) 8.5 % Eos % (Auto) 0.2 % Baso % (Auto) 0.2 % Neut # (Auto) 10.00 H (1.40-6.50) K/uL Lymph # (Auto) 1.34 (1.2-3.4) K/uL [place] # (Auto) 1.07 H (0.11-0.59) K/uL Eos # (Auto) 0.02 (0-0.50) K/uL Baso # (Auto) 0.03 (0-0.2) K/uL Immature Gran # (Auto) 0.07 (0.01-0.20) K/uL APTT 29.9 (21.0-31.0) Seconds PTT Ratio 1.1 Sodium (136-145) mmol/L Potassium (3.5-5.1) mmol/L Chloride (98-107) mmol/L Carbon Dioxide (21-32) mmol/L Anion Gap (3-11) BUN (6-23) mg/dl Creatinine (0.6-1.4) mg/dl Est Cr Clr Drug Dosing Est GFR ( Amer) ml/min Est GFR (Non-Af Amer) ml/min BUN/Creatinine Ratio (10-20) Glucose (70-99(Fasting)) mg/dl Uric Acid (2.6-7.2) mg/dl Calcium (8.6-10.3) mg/dl Phosphorus (2.5-4.9) mg/dl Magnesium (1.7-2.4) mg/dl Total Bilirubin (0.2-1.0) mg/dl AST (13-39) U/L ALT (7-52) U/L Alkaline Phosphatase (34-104) U/L Total Protein (6.0-8.3) gm/dl Albumin (3.4-5.0) gm/dl Globulin (2.5-4.0) gm/dl Albumin/Globulin Ratio (0.9-2) TSH (0.300-4.500) uIu/ml Urine Color Urine Appearance (Clear) Urine pH (4.5-7.5) Ur Specific [place] (1.000-1.030) Urine Protein (Negative) Urine Glucose (UA) (Negative) Urine Ketones (Negative) Urine Blood (Negative) Urine Nitrite (Negative) Urine Bilirubin (Negative) Urine Urobilinogen (Negative) Ur Leukocyte Esterase (Negative) Urine WBC (Auto) (0-5) /hpf Urine RBC (Auto) (0-4) /hpf U Hyaline Cast (Auto) (0-5) /lpf U Epithel Cells (Auto) (0-5) /lpf Urine Bacteria (Auto) (Negative) Ur Renal Epithelial Cell Granular Casts (0) /lpf Ur Random Creatinine mg/dl Ur Random Sodium mmol/L Medications Administered Current Inpatient Medications Acetaminophen (Acetaminophen 500 Mg Tab) 1,000 mg PO Q8H ARACELI Stop: 11/05/22 18:40 Last Admin: 10/07/22 05:53 Dose: 1,000 mg Enoxaparin Sodium (Enoxaparin Inj 40 Mg/0.4 Ml Syr) 40 mg SQ QAM ARACELI Stop: 11/06/22 08:59 Potassium Chloride/Dextrose/Sod Cl (D5w And 1/2nss + 20meq Kcl) 20 meq in 1,000 mls @ 125 mls/hr IV .Q8H [facility]; Protocol Stop: 10/07/22 10:59 Last Admin: 10/07/22 04:18 Dose: 125 mls/hr Morphine Sulfate (Morphine Sulfate 4 Mg/Ml 1 Ml Carp\Vial) 4 mg IV Q4H PRN PRN Reason: severe pain (7+) Stop: 10/20/22 18:40 Last Admin: 10/06/22 20:02 Dose: 4 mg Nifedipine (Nifedipine Extended Rel 30 Mg Tabcr) 30 mg PO QAM [facility] Stop: 11/06/22 08:59 Nitroglycerin (Nitroglycerin 2% Ointment 30gm Tube) 1 inch EXT Q6H [facility] Stop: 11/05/22 23:44 Last Admin: 10/07/22 02:25 Dose: 1 inch Ondansetron HCl (Ondansetron Inj 2 Mg/Ml 2 Ml Vial) 4 mg IV Q6H PRN PRN Reason: Nausea Stop: 11/05/22 18:40 Oxycodone HCl (Oxycodone Hcl Ir 5 Mg Tab (Immediate Release)) 5 mg PO Q6H PRN PRN Reason: severe pain (7+) Stop: 10/20/22 18:40 Polyethylene Glycol (Polyethylene (Miralax) 17 Gm Pack) 17 gm PO DAILY PRN PRN Reason: Constipation Stop: 11/05/22 18:40 Prednisone (Prednisone 20 Mg Tab) 60 mg PO DAILY [facility] Stop: 11/06/22 08:59 (2) Gout attack Gout etiology: unspecified cause Gout site: multiple sites Qualified Code(s): M10.9 - Gout, unspecified (5) Hyperlipidemia Hyperlipidemia type: unspecified Qualified Code(s): E78.5 - Hyperlipidemia, unspecified
[2022-10-07] MEDS: ENOXAPARIN INJ 40 MG/0.4 ML SYR SQ SCH (08:36)
[2022-10-07] MEDS: oxyCODONE HCL IR 5 MG TAB (IMMEDIATE RELEASE) PO PRN ×2 (08:40→18:35)
[2022-10-07] MEDS ORDERED: predniSONE 20 MG TAB PO SCH (09:00)
[2022-10-07] MEDS ORDERED: NIFEdipine EXTENDED REL 30 MG TABCR PO SCH (09:00)
--- NOTE | 2022-10-07 17:36 | Electrocardiogram Report ---
Test Reason : Blood Pressure : / mmHG Vent. Rate : 086 BPM Atrial Rate : 086 BPM P-R Int : 160 ms QRS Dur : 110 ms QT Int : 380 ms P-R-T Axes : 041 020 012 degrees QTc Int : 455 ms Normal sinus rhythm Nonspecific T wave abnormality Abnormal ECG When compared with ECG of 06-OCT-2022 11:05, No significant change was found Confirmed by Tayo Hill ([id number]) on 10/07/2022 5:36:21 PM Referred By: REFERRED SELF Confirmed By:Tayo Hill
--- NOTE | 2022-10-07 17:51 | Orthopedic Consultation ---
Date of Consultation October 07, 2022 Assessment & Plan (1) Left ankle effusion: Recommendation: Conservative management with anti-inflammatories, ice and limitation in weightbearing left lower extremity until symptoms improve. ASO or lace up type ankle brace left ankle. Continue allopurinol for gout management. Adhere to a gout preventative diet. Follow-up as outpatient as needed. Thank you for the opportunity to participate in the care of this patient. Leif Valverde, [facility] [place] (2) Peroneal tendinitis of left lower extremity: (3) Gout attack: History of Present Illness Reason for Consultation: Left ankle pain and swelling with acute onset over the last 2 to 4 days coinciding with acute gouty flare. Attending Physician: Jasper Tran MD History of Present Illness This is a 37-year-old gentleman seen at the request of the hospitalist team and Dr. Tran due to acute left ankle pain coinciding with gouty flare. Patient states that his gouty flareups occur 1 to possibly 2 times per year. He has not been taking his medications as directed and presented to the emergency department with hypertensive urgency and acute gouty flare. Orthopedics was consulted after stabilization and admission to the hospital. Patient has no known history of injury to the left ankle. No prior surgery. Allergies Allergy/AdvReac Type Severity Reaction Status Date / Time No Known Allergies Allergy Unverified 10/06/22 13:58 Home Medications Medication Instructions Recorded Confirmed Type allopurinol 300 mg tablet 300 mg PO DAILY 10/06/22 10/06/22 History amlodipine 5 mg tablet 5 mg PO DAILY 10/06/22 10/06/22 History atorvastatin 20 mg tablet 20 mg PO DAILY 10/06/22 10/06/22 History lisinopril 40 mg tablet 40 mg PO DAILY 10/06/22 10/06/22 History Patient History Medical History Gout Hyperlipidemia Hypertension Surgical History No pertinent past surgical history Family History Other Family history non-contributory Social History Smoking Status: Never smoker Do You Dip or Chew Tobacco: No; Hx Alcohol Use: No Hx Substance Use: No Preferred Language: Spanish Communication Ability: Effective 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 Left greater than right lower extremity edema. Gastrointestinal (Abdomen): normal bowel sounds, soft, nontender, no hepatosplenomegaly Obese abdomen. Musculoskeletal: Left ankle demonstrates mild effusion. Mild increased warmth left ankle compared to right. Particular tenderness to palpation over the peroneal tendons and lateral ankle. No evidence of significant lateral ankle ligament instability. Range of motion symmetric bilateral ankles. Strength 5/5 bilateral ankles with the exception of left ankle weakness due to pain with resisted eversion localized to the peroneal tendons. No obvious subluxation of the peroneal tendons. Sensation intact. Skin: no rashes, warm and dry Neurologic: PERRL, EOMI, accommodation nl, no face palsy, no dysarthria Psychiatric: A+Ox3, euthymic affect Lymphatic: no cervical or axillary lymphadenopathy Results & Data Vital Signs (Past 12 Hours) Vital Signs Temp Pulse Resp BP Pulse Ox O2 Del Method 10/07/22 15:43 36.7 C 92 H 18 170/95 H 93 Room Air 10/07/22 12:09 36.7 C 88 18 153/85 H 91 Room Air 10/07/22 08:14 36.9 C 90 20 174/101 H 95 Room Air Laboratory Results Laboratories reviewed. Diagnostic Findings Radiographs reviewed. No obvious fractures. Trace effusion. Soft tissue swelling left ankle. Pes planovalgus. (3) Gout attack Gout site: multiple sites Gout etiology: unspecified cause Qualified Code(s): M10.9 - Gout, unspecified
[2022-10-08] MEDS: NITROGLYCERIN 2% OINTMENT 30GM TUBE EXT SCH ×3 (00:56→13:14)
[2022-10-08] MEDS ORDERED: cloNIDine HCL 0.1 MG TAB PO ONE (03:30)
[2022-10-08 06:01] LABS: Hematocrit (blood only) 36.9 % (42.0-52.0); Hemoglobin 12.3 g/dl (14.0-18.0); Mean Corpuscular Hemoglobin 28.7 pg (25.0-34.0); Mean Corpuscular Hgb Conc 33.3 g/dL (32.0-36.0); Mean Corpuscular Volume 86.2 fL (80.0-100.0); Mean Platelet Volume 11.5 fL (9.4-12.4); Platelet Count 214 K/uL (130-400); RDW Coefficient of Variation 14.6 % (11.5-14.5); RDW Standard Deviation 45.5 fL (36.4-46.3); Red Blood Count 4.28 M/uL (4.70-6.10); White Blood Count 13.69 K/ul (4.8-10.8)
[2022-10-08] MEDS: ACETAMINOPHEN 500 MG TAB PO SCH (06:13)
[2022-10-08 06:18] LABS: BUN Creatinine Ratio 15.6 (10-20); Calcium 9.5 mg/dl (8.6-10.3); Creatinine Clr Calc Pharmacy 84.2 ml/min; Est GFR (African American) 62.9 ml/min; Est GFR (Non-African American) 54.2 ml/min; Magnesium 2.1 mg/dl (1.7-2.4); Phosphorus 3.2 mg/dl (2.5-4.9); Potassium 3.7 mmol/L (3.5-5.1)
[2022-10-08] MEDS ORDERED: LABETALOL HCL IV 5 MG/ML 20ML IV STA (06:23)
[2022-10-08] MEDS: hydrALAZINE HCL 20 MG/ML VIAL IV PRN ×2 (08:54→23:27)
[2022-10-08] MEDS: predniSONE 20 MG TAB PO SCH (08:54)
[2022-10-08] MEDS: ENOXAPARIN INJ 40 MG/0.4 ML SYR SQ SCH (08:54)
[2022-10-08] MEDS: oxyCODONE HCL IR 5 MG TAB (IMMEDIATE RELEASE) PO PRN (08:54)
[2022-10-08] MEDS ORDERED: amLODIPine BESYLATE 5 MG TAB PO SCH (09:00)
[2022-10-08] MEDS ORDERED: ACETAMINOPHEN 500 MG TAB PO PRN (09:03)
[2022-10-08] MEDS: COLCHICINE 0.6 MG TAB PO SCH ×2 (09:50→20:13)
--- NOTE | 2022-10-08 13:07 | Nephrology Consultation ---
Date of Consultation October 08, 2022 Assessment & Plan (1) Hypertensive urgency: In the setting of uncontrolled pain from a gout attack and at least a month without his outpatient medications. For patient in his 30s to have hypertension requiring 2 agents, this is premature hypertension until proven otherwise. He tells me he was dx'd age 19 yrs. Denies any FH of similar issues. Will need close outpatient follow-up. BP in 200-210s/130-140s last evening. -target SBP is 150-160s to be reached over days > today in 180-190s mostly systolic Continue work to control pain - recommend TTE to evaluate for LVH -will need OP sleep study > start w/ nocturnal pulseox Added labetalol 200 mg tid; added hydralazine 25 mg qid; continue amlodipine; prefer to avoid diuretics, SPENCER/ARB until we have a better idea of baseline renal function. Care coordinated w/ Dr Kothari. (2) Renal insufficiency: Unknown baseline renal function. Presenting with creatinine 1.8, down to 1.6 today. Current colchicine dose okay; monitor for appropriateness Daily basic metabolic panel Will need to recheck UACM and quantify protein when blood pressure better controlled -recommend renal u/s given HTN, suspected proteinuria > so ordered consider lead nephropathy or lead-related nephrotoxicity dx given HTN, gout, CKD >> though I reviewed work hx will get ARR in AM History of Present Illness Reason for Consultation: Hypertensive urgency Requesting Physician: Dr. Kothari Attending Physician: Jim Kothari MD History of Present Illness 37-year-old male whom I am asked to evaluate for hypertensive urgency was admitted yesterday afternoon for uncontrolled blood pressure in the setting of a gout attack with severe left knee and ankle pain leaving him unable to ambulate. Past medical history includes both gout and hypertension as well as hyperlipidemia. He had not taken his medications for a month prior to presentation. He uses EtOH socially, not daily; no tobacco use; no illicit substances. Presenting blood pressure 205/131 with heart rate in the 100s. Of note presenting creatinine was also 1.8 with a potassium of 3.1. The patient did have 2-3 episodes of loose stool in the day before presenting to ER. Baseline creatinine is unknown. Creatinine this a.m. is 1.6. On presentation, he was started on labetalol and Nitropaste as well as a calcium channel richard. To manage gout he is receiving steroids and was started on colchicine 0.6 mg twice daily. He has a left ankle effusion associated with the gout attack evaluated by orthopedics and for which no arthrocentesis is indicated. Currently he is maintained on amlodipine 10 mg daily and Nitropaste with as needed hydralazine 5 mg hourly every 6 IV which she has received once. He also had 1 dose of p.o. clonidine 0.1 mg at 0400 this morning as well as 1 dose of IV labetalol. No sob, no n/v, no voiding c/o, no focal numbness/weakness, no edema apart from L ankle. had one dose of OTC nsaid prior to hospital w/ gout but one only. no chest pain, palpitations, confusion, acute vision changes. no flank or back pain. Worked for [employer] for 14 years; works for [employer] now. no occupational or personal hx of lead exposure. Allergies Allergy/AdvReac Type Severity Reaction Status Date / Time No Known Allergies Allergy Unverified 10/06/22 13:58 Home Medications Medication Instructions Recorded Confirmed Type allopurinol 300 mg tablet 300 mg PO DAILY 10/06/22 10/06/22 History amlodipine 5 mg tablet 5 mg PO DAILY 10/06/22 10/06/22 History atorvastatin 20 mg tablet 20 mg PO DAILY 10/06/22 10/06/22 History lisinopril 40 mg tablet 40 mg PO DAILY 10/06/22 10/06/22 History Patient History Medical History Gout Hyperlipidemia Hypertension Surgical History No pertinent past surgical history Family History (Updated 10/08/22 @ 16:15 by Leyla Albert MD, PhD) Other Family history non-contributory Denies family history of Kidney disease Hypertension Social History Smoking Status: Never smoker Do You Dip or Chew Tobacco: No; Hx Alcohol Use: No Hx Substance Use: No Preferred Language: Romanian Communication Ability: Effective 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 Beliefs That Will Affect Care: None Current Living Situation: Significant Other current occupational status: employed Other Information That Helps Us Care for You: No Feels Safe at Home: Yes Safety Concerns: Feels Safe At This Time Assistive Devices: None Review of Systems Review of Systems: All systems reviewed & are unremarkable except as noted in HPI & below Physical Exam Constitutional: well developed, well nourished, + obese and cooperative; no acute distress Eyes: EOM intact bilaterally ENMT: Ears: no external ear abnormality Nose: no external nose abnormality Mouth: + dry oral mucous membranes Neck: no nuchal rigidity Respiratory: normal respiratory effort Auscultation: + diminished lung sounds Cardiovascular: Rate/Rhythm: regular rhythm and + tachycardic Extremities: no edema Gastrointestinal (Abdomen): Inspection/Auscultation: normal bowel sounds Percussion/Palpation: abdomen soft; abdomen nontender (no abdominal bruit) Musculoskeletal: Extremities: strength 5/5 throughout Skin: no rashes, warm and dry Neurologic: beltran, fluent speech, no tremor Psychiatric: Orientation: alert and oriented x 3 Speech: normal rate/rhyt hm/volume of speech Insight: good insight Judgment: good judgement Results & Data Vital Signs (Past 12 Hours) Vital Signs Temp Pulse Pulse Resp BP BP Pulse Ox 10/08/22 10:00 184/114 H 10/08/22 08:00 85 10/08/22 08:00 10/08/22 11:16 36.8 C 87 18 176/121 H 96 10/08/22 07:15 82 193/114 H 10/08/22 06:58 36.6 C 83 20 193/114 H 93 10/08/22 06:31 88 180/114 H 10/08/22 03:26 36.7 C 87 20 190/110 H 95 10/08/22 02:54 98 H O2 Del Method 10/08/22 10:00 10/08/22 08:00 10/08/22 08:00 Room Air 10/08/22 11:16 Room Air 10/08/22 07:15 10/08/22 06:58 Room Air 10/08/22 06:31 10/08/22 03:26 Room Air 10/08/22 02:54 Laboratory Results 10/08/22 05:27 10/08/22 05:27 10/08/22 05:27 10/08/22 05:27 Urinalysis clear yellow urine with a pH of 5.5 and specific gravity 1028 4+ protein 2+ blood trace ketones greater than 30 epithelial cells 1-5 granular casts 5-10 red cells no bacteria; all other indices negative Diagnostic Findings CXR image reviewed by me personally no acute or chronic cardiopulmonary process
[2022-10-08] MEDS: LABETALOL HCL 200 MG TAB PO SCH ×2 (16:15→20:13)
[2022-10-08] MEDS: hydrALAZINE HCL 25 MG TAB PO SCH ×2 (16:15→20:13)
--- NOTE | 2022-10-08 17:49 | Hospitalist Progress Note ---
Date of Service October 08, 2022 Assessment & Plan (1) Hypertensive urgency: Plan: As per admitting provider w/addendum Labetalol started in the ER. Patient has been noncompliant with his lisinopril 40mg and amlodipine 5mg per home regimen for the past month. He denies any chest pain or trouble breathing and denies headache. No stroke symptoms present. He does have evidence of acute kidney injury, however, baseline creatinine is unknown. ACEI contraindicated in setting of renal failure but will restart CCB now. 10/09 BP still not at goal Hydralazine increased Amlodipine, Labetalol continued suspect patient has Hyperaldosteronism Chlorthalidone and Spironolactone ordered monitor ff up echo, renal US (2) Gout attack: Plan: Pain improved with IV solumedrol in the ER and percocet. 10/09 improving continue Prednisone 40mg daily Colchicine 0.1mg BID (3) Acute renal failure: Plan: Unknown baseline creatinine with creatinine 1.75 on admission. Crea improved to 1.4 (4) Hypokalemia: Plan: Replaced (5) Hyperlipidemia: Plan: h/o atorvastatin usage. Hold on restarting this for now to minimize any medications interactions or side effects while initiating acute treatment. Recommend establishing care in the area and following up with a primary care physician at discharge. Will perform screening for diabetes with A1C given risk factors for this including obesity, hypertension and hyperlipidemia. Lovenox Full Code plan of care discussed with patient in detail and at length all questions answered he is understanding, agreeable, comfortable with the plan of care Admission and Anticipated Discharge Date Admission Date: October 06, 2022 Results & Data Results & Data Vital Signs (Past 12 Hours) Vital Signs Temp Pulse Pulse Resp BP BP Pulse Ox 10/08/22 15:26 37.3 C 98 H 18 195/123 H 96 10/08/22 13:16 99 H 206/108 H 10/08/22 10:00 184/114 H 10/08/22 08:00 85 10/08/22 08:00 10/08/22 11:16 36.8 C 87 18 176/121 H 96 10/08/22 07:15 82 193/114 H 10/08/22 06:58 36.6 C 83 20 193/114 H 93 10/08/22 06:31 88 180/114 H O2 Del Method 10/08/22 15:26 Room Air 10/08/22 13:16 10/08/22 10:00 10/08/22 08:00 10/08/22 08:00 Room Air 10/08/22 11:16 Room Air 10/08/22 07:15 10/08/22 06:58 Room Air 10/08/22 06:31 (2) Gout attack Gout etiology: unspecified cause Gout site: multiple sites Qualified Code(s): M10.9 - Gout, unspecified (5) Hyperlipidemia Hyperlipidemia type: unspecified Qualified Code(s): E78.5 - Hyperlipidemia, unspecified
--- NOTE | 2022-10-08 17:51 | Electrocardiogram Report ---
Test Reason : Blood Pressure : / mmHG Vent. Rate : 087 BPM Atrial Rate : 087 BPM P-R Int : 158 ms QRS Dur : 108 ms QT Int : 384 ms P-R-T Axes : 044 030 012 degrees QTc Int : 462 ms Poor data quality, interpretation may be adversely affected Normal sinus rhythm Normal ECG When compared with ECG of 07-OCT-2022 05:53, No significant change was found Confirmed by Tayo Hill ([id number]) on 10/08/2022 5:50:52 PM Referred By: REFERRED SELF Confirmed By:Tayo Hill
[2022-10-09] MEDS: amLODIPine BESYLATE 5 MG TAB PO SCH (01:26)
[2022-10-09] MEDS: LABETALOL HCL 200 MG TAB PO SCH ×3 (03:49→20:34)
[2022-10-09 06:37] LABS: BUN Creatinine Ratio 16.3 (10-20); Calcium 9.3 mg/dl (8.6-10.3); Creatinine Clr Calc Pharmacy 91.6 ml/min; Est GFR (African American) 69.6 ml/min; Est GFR (Non-African American) 60.1 ml/min; Potassium 3.3 mmol/L (3.5-5.1)
[2022-10-09] MEDS ORDERED: POTASSIUM CHLORIDE CRTAB 20 MEQ TABCR PO STA (07:46)
[2022-10-09] MEDS ORDERED: POTASSIUM CHLORIDE CRTAB 20 MEQ TABCR PO SCH (09:00)
[2022-10-09] MEDS ORDERED: SPIRONOLACTONE 100 MG TAB PO SCH (09:00)
[2022-10-09] MEDS: SODIUM CHLORIDE 0.9% 1000ML 1,000 ML IV SCH ×2 (09:37→11:39)
[2022-10-09] MEDS: predniSONE 20 MG TAB PO SCH (09:37)
[2022-10-09] MEDS: COLCHICINE 0.6 MG TAB PO SCH ×2 (09:42→20:33)
[2022-10-09] MEDS: hydrALAZINE TAB 50 MG TAB PO SCH ×4 (09:44→20:34)
[2022-10-09] MEDS: ENOXAPARIN INJ 40 MG/0.4 ML SYR SQ SCH (09:45)
--- NOTE | 2022-10-09 10:04 | Ultrasound Report ---
RENAL ULTRASOUND HISTORY: premature hypertension, HTN urgency, creat 1.6 COMPARISON: None. FINDINGS: Right kidney: 13.1 cm. No hydronephrosis. Normal corticomedullary differentiation and cortical thickn ess. Left kidney: 13.3 cm. No hydronephrosis. Echogenic cortex. However, this could be technical. Bladder: Mild bladder wall thickening. This is likely due to underdistention. The ureteral jets were not identified. IMPRESSION: 1. No hydronephrosis. 2. Possible echogenic cortex of the left kidney. However, this could be technical. 3. Bladder wall thickening likely due to underdistention. ACT 112: Negative or not required by law. Electronically signed by: Matt Xiong M.D. 10/09/2022 10:02 AM
--- NOTE | 2022-10-09 18:24 | Nephrology Progress Note ---
Date of Service October 09, 2022 Assessment & Plan (1) Hypertensive urgency: Plan: In the setting of uncontrolled pain from a gout attack and at least a month without his outpatient medications. For patient in his 30s to have hypertension requiring 2 agents, this is premature hypertension until proven otherwise. He tells me he was dx'd age 19 yrs. severe clvh on [facility] u/s w/ large kidneys BL. Denies any FH of similar issues. Will need close outpatient follow-up. BP in 200-210s/130-140s on presentation. -target SBP is 150-160s to be reached over days > today in 180-190s mostly systolic Continue work to control pain -nocturnal pulse ox unremarkable SUSPECT he has hyperaldosteoronism given low K and longstanding HTN -ordered ARR and d/t slow turnaround time did saline load today w/ f/u marleni level are confirmatory test >if aldosterone dx'd, will need CT a/p to look for adenoma or other >added spironolactone 100 mg daily to start this evening after above labs >also added chlorthalidone 25 mg daily first dose today and started K 20 mEq tid >hydralazine increased to 50 mg qid -continue labetalol 200 mg tid >will need jhon/arb Care coordinated w/ Dr Kothari. (2) Renal insufficiency: Plan: Unknown baseline renal function. Presenting with creatinine 1.8, down to 1.6 today. Current colchicine dose okay; monitor for appropriateness Daily basic metabolic panel Will need to recheck UACM and quantify protein when blood pressure better controlled -recommend renal u/s given HTN, suspected proteinuria > so ordered consider lead nephropathy or lead-related nephrotoxicity dx given HTN, gout, CKD >> though I reviewed work hx will get ARR in AM Admission and Anticipated Discharge Date Admission Date: October 06, 2022 Subjective upin chair. no sob, no n/v. some restless sleep but no noct hypoxia Review of Systems Review of Systems: All systems reviewed & are unremarkable except as noted in Subjective Physical Exam Constitutional: well developed, well nourished, + obese and cooperative; no acute distress Eyes: EOM intact bilaterally ENMT: Ears: no external ear abnormality Nose: no external nose abnormality Mouth: + dry oral mucous membranes Neck: no nuchal rigidity Respiratory: normal respiratory effort Auscultation: + diminished lung sounds Cardiovascular: Rate/Rhythm: regular rhythm and + tachycardic Extremities: no edema Gastrointestinal (Abdomen): Inspection/Auscultation: normal bowel sounds Percussion/Palpation: abdomen soft; abdomen nontender (no abdominal bruit) Musculoskeletal: Extremities: strength 5/5 throughout Skin: no rashes, warm and dry Psychiatric: Orientation: alert and oriented x 3 Speech: normal rat e/rhythm/volume of speech Insight: good insight Judgment: good judgement Results & Data Vital Signs (Past 12 Hours) Vital Signs Temp Pulse Pulse Pulse Resp BP Pulse Ox 10/09/22 17:10 85 178/100 H 10/09/22 14:06 91 H 10/09/22 15:51 37.1 C 83 18 175/101 H 95 10/09/22 15:38 87 18 166/106 H 10/09/22 12:35 91 H 186/106 H 10/09/22 07:15 87 10/09/22 11:14 36.6 C 94 H 18 173/129 H 94 10/09/22 07:45 36.9 C 88 20 175/110 H 97 O2 Del Method 10/09/22 17:10 10/09/22 14:06 10/09/22 15:51 Room Air 10/09/22 15:38 10/09/22 12:35 10/09/22 07:15 10/09/22 11:14 Room Air 10/09/22 07:45 Room Air Laboratory Results 10/08/22 05:27 10/09/22 05:25 Diagnostic Findings TTE > severe clvh; valves ok
--- NOTE | 2022-10-09 19:32 | Hospitalist Progress Note ---
Date of Service October 09, 2022 Assessment & Plan (1) Hypertensive urgency: Plan: As per admitting provider w/addendum Labetalol started in the ER. Patient has been noncompliant with his lisinopril 40mg and amlodipine 5mg per home regimen for the past month. He denies any chest pain or trouble breathing and denies headache. No stroke symptoms present. He does have evidence of acute kidney injury, however, baseline creatinine is unknown. ACEI contraindicated in setting of renal failure but will restart CCB now. 10/09 BP still not at goal Hydralazine increased Amlodipine, Labetalol continued suspect patient has Hyperaldosteronism Chlorthalidone and Spironolactone ordered monitor ff up echo, renal US (2) Gout attack: Plan: Pain improved with IV solumedrol in the ER and percocet. 10/09 improving continue Prednisone 40mg daily Colchicine 0.1mg BID (3) Acute renal failure: Plan: Unknown baseline creatinine with creatinine 1.75 on admission. Crea improved to 1.4 (4) Hypokalemia: Plan: Replaced (5) Hyperlipidemia: Plan: h/o atorvastatin usage. Hold on restarting this for now to minimize any medications interactions or side effects while initiating acute treatment. Recommend establishing care in the area and following up with a primary care physician at discharge. Will perform screening for diabetes with A1C given risk factors for this including obesity, hypertension and hyperlipidemia. Padma Full Code plan of care discussed with patient in detail and at length all questions answered he is understanding, agreeable, comfortable with the plan of care Admission and Anticipated Discharge Date Admission Date: October 06, 2022 Subjective ff up for HTN, etc resting in bed, sitting up states he feels ok overall no chest pain, dyspnea, palpitations, dizziness no nausea/vomiting R knee pain somewhat better, but still not able to bear much weight due to pain Review of Systems Review of Systems: all noted and negative except for above Physical Exam Physical Exam: General- oriented x 3, not in distress, speaks in sentences with no effort or accessory muscle use Eyes- anicteric Neck- no JVD Lungs- clear breath sounds bilaterally, no rales/wheezes Heart- normal rate, regular rhythm; no murmurs Abdomen- normal bowel sounds, nondistended, soft, nontender Extremities- no pretibial edema, no calf tenderness L knee- mild warmth, no edema, mild tenderness Neuro- alert, oriented x 3; no gross focal neurologic deficits Skin- warm & dry Results & Data Results & Data Vital Signs (Past 12 Hours) Vital Signs Temp Pulse Pulse Pulse Resp BP Pulse Ox 10/09/22 17:10 85 178/100 H 10/09/22 14:06 91 H 10/09/22 15:51 37.1 C 83 18 175/101 H 95 10/09/22 15:38 87 18 166/106 H 10/09/22 12:35 91 H 186/106 H 10/09/22 11:14 36.6 C 94 H 18 173/129 H 94 10/09/22 07:45 36.9 C 88 20 175/110 H 97 O2 Del Method 10/09/22 17:10 10/09/22 14:06 10/09/22 15:51 Room Air 10/09/22 15:38 10/09/22 12:35 10/09/22 11:14 Room Air 10/09/22 07:45 Room Air all noted and reviewed including below (2) Gout attack Gout site: multiple sites Gout etiology: unspecified cause Qualified C ode(s): M10.9 - Gout, unspecified (5) Hyperlipidemia Hyperlipidemia type: unspecified Qualified Code(s): E78.5 - Hyperlipidemia, unspecified
[2022-10-09] MEDS: SPIRONOLACTONE 100 MG TAB PO SCH (20:32)
[2022-10-09] MEDS: CHLORTHALIDONE 25 MG TAB PO SCH (20:32)
[2022-10-09] MEDS: POTASSIUM CHLORIDE CRTAB 20 MEQ TABCR PO SCH ×2 (20:33→20:38)
[2022-10-10] MEDS: hydrALAZINE HCL 20 MG/ML VIAL IV PRN ×4 (00:05→23:07)
[2022-10-10] MEDS ORDERED: CALCIUM CARBONATE 500 MG CHEWABLE TAB PO STA (00:21)
[2022-10-10] MEDS: LABETALOL HCL 200 MG TAB PO SCH ×2 (05:43→14:08)
[2022-10-10] MEDS: CHLORTHALIDONE 25 MG TAB PO SCH (08:27)
[2022-10-10] MEDS: SPIRONOLACTONE 100 MG TAB PO SCH (08:27)
[2022-10-10] MEDS: amLODIPine BESYLATE 5 MG TAB PO SCH (08:28)
[2022-10-10] MEDS: ENOXAPARIN INJ 40 MG/0.4 ML SYR SQ SCH (08:29)
[2022-10-10] MEDS: COLCHICINE 0.6 MG TAB PO SCH ×2 (08:29→19:42)
[2022-10-10] MEDS: predniSONE 20 MG TAB PO SCH (08:30)
[2022-10-10] MEDS: hydrALAZINE TAB 50 MG TAB PO SCH ×4 (08:30→19:40)
[2022-10-10] MEDS: POTASSIUM CHLORIDE CRTAB 20 MEQ TABCR PO SCH ×3 (08:31→19:41)
[2022-10-10 08:42] LABS: BUN Creatinine Ratio 14.9 (10-20); Calcium 9.7 mg/dl (8.6-10.3); Est GFR (African American) 69.1 ml/min; Est GFR (Non-African American) 59.6 ml/min; Potassium 3.6 mmol/L (3.5-5.1)
--- NOTE | 2022-10-10 16:15 | Nephrology Progress Note ---
Date of Service October 10, 2022 Assessment & Plan (1) Hypertensive urgency: Plan: In the setting of uncontrolled pain from a gout attack and at least a month without his outpatient medications. For patient in his 30s to have hypertension requiring 2 agents, this is premature hypertension until proven otherwise. He tells me he was dx'd age 19 yrs. severe clvh on [facility] u/[facility] w/ large kidneys BL. Denies any FH of similar issues. Will need close outpatient follow-up. BP in 200-210s/130-140s on presentation. -target SBP is 150-160s to be reached over days > today in 170-180s mostly systolic Continue work to control pain -nocturnal pulse ox unremarkable >>[facility] on TTE SUSPECT he has hyperaldosteoronism given low K and longstanding HTN -ordered ARR and d/t slow turnaround time did saline load today w/ f/u marleni level are confirmatory test >if aldosterone dx'd, will need CT a/p to look for adenoma or other >continue spironolactone 100 mg daily >continue chlorthalidone 25 mg daily > continue K 20 mEq tid >hydralazine increased to 50 mg qid on 10/09 >>>>started losartan 100 mg daily today >>increased labetalol to 300 mg tid >>if at all feasible pls d/c w/ home bp cuff Care coordinated w/ Dr Kothari. (2) Renal insufficiency: Plan: Unknown baseline renal function. Presenting with creatinine 1.8, down to 1.6 today. Current colchicine dose okay; monitor for appropriateness Daily basic metabolic panel Will need to recheck UACM and quantify protein when blood pressure better controlled -recommend renal u/s given HTN, suspected proteinuria > so ordered consider lead nephropathy or lead-related nephrotoxicity dx given HTN, gout, CKD >> though I reviewed work hx will get ARR in AM Admission and Anticipated Discharge Date Admission Date: October 06, 2022 Subjective see 0750 on AM rounds. no acute interval events > walked/limped w/o asst > ankle still sore though better. nosob, no n/v, no edema, no chest pain. no voiding difficulties Review of Systems Review of Systems: All systems reviewed & are unremarkable except as noted in Subjective Physical Exam Constitutional: well developed, well nourished, + obese and cooperative; no acute distress Eyes: EOM intact bilaterally ENMT: Ears: no external ear abnormality Nose: no external nose abnormality Mouth: + dry oral mucous membranes Neck: no nuchal rigidity Respiratory: normal respiratory effort Auscultation: + diminished lung sounds Cardiovascular: Rate/Rhythm: regular rhythm and + tachycardic Extremities: no edema Gastrointestinal (Abdomen): Inspection/Auscultation: normal bowel sounds Percussion/Palpation: abdomen soft; abdomen nontender (no abdominal bruit) Musculoskeletal: Extremities: strength 5/5 throughout Skin: no rashes, warm and dry Neurologic: beltran, fluent speech, no tremor Psychiatric: Orientation: alert and oriented x 3 Speech: normal rate/rhythm/volume of speech Insight: good insight Judgment: good judgement Results & Data Vital Signs (Past 12 Hours) Vital Signs Temp Pulse Resp BP BP Pulse Ox O2 Del Method 10/10/22 12:23 90 166/94 H 10/10/22 10:49 36.7 C 88 24 181/122 H 95 Room Air 10/10/22 07:47 36.9 C 87 24 218/140 H 96 Room Air 10/10/22 04:59 170/109 H Laboratory Results 10/08/22 05:27 10/10/22 07:30
[2022-10-10] MEDS ORDERED: CALCIUM CARBONATE 500 MG CHEWABLE TAB PO PRN (16:40)
[2022-10-10] MEDS: LOSARTAN POTASSIUM 50 MG TAB PO SCH (16:44)
--- NOTE | 2022-10-10 19:24 | Hospitalist Progress Note ---
Date of Service October 10, 2022 Assessment & Plan (1) Hypertensive urgency: Plan: As per admitting provider w/addendum Labetalol started in the ER. Patient has been noncompliant with his lisinopril 40mg and amlodipine 5mg per home regimen for the past month. He denies any chest pain or trouble breathing and denies headache. No stroke symptoms present. He does have evidence of acute kidney injury, however, baseline creatinine is unknown. ACEI contraindicated in setting of renal failure but will restart CCB now. 10/10 BP still not at goal Labetalol increased Losartan added continue Amlodipine, Hydralazine, Chlorthalidone, Spironolactome Echo: severe concentric LVH Kidney US: no obstruction (2) Gout attack: Plan: Pain improved with IV solumedrol in the ER and percocet. 10/10 improving continue to taper Prednisone : 20mg daily Colchicine 0.1mg BID (3) Acute renal failure: Plan: Unknown baseline creatinine with creatinine 1.75 on admission. Crea improved to 1.4 (4) Hypokalemia: Plan: Replaced (5) Hyperlipidemia: Plan: h/o atorvastatin usage. Hold on restarting this for now to minimize any medications interactions or side effects while initiating acute treatment. Recommend establishing care in the area and following up with a primary care physician at discharge. Will perform screening for diabetes with A1C given risk factors for this including obesity, hypertension and hyperlipidemia. Padma Full Code plan of care discussed with patient in detail all questions answered he is understanding, agreeable, comfortable with the plan of care Admission and Anticipated Discharge Date Admission Date: October 06, 2022 Subjective ff up for HTN, etc seen resting in bed, comfortable no chest pain, dyspnea, palpitations, dizziness no headache, nasuea L knee pain improving, able to ambulate better no other symptoms Review of Systems Review of Systems: all noted and negative except for above Physical Exam Physical Exam: General- oriented x 3, not in distress, speaks in sentences with no effort or accessory muscle use Eyes- anicteric Neck- no JVD Lungs- clear breath sounds bilaterally, no rales/wheezes Heart- normal rate, regular rhythm; no murmurs Abdomen- normal bowel sounds, nondistended, soft, nontender Extremities- no pretibial edema, no calf tenderness L knee: mild warmth, no edema, tenderness Neuro- alert, oriented x 3; no gross focal neurologic deficits Skin- warm & dry Results & Data Results & Data Vital Signs (Past 12 Hours) Vital Signs Temp Pulse Resp BP Pulse Ox O2 Del Method 10/10/22 19:06 36.7 C 96 H 18 179/116 H 96 Room Air 10/10/22 17:08 36.7 C 91 H 22 158/106 H 91 Room Air 10/10/22 12:23 90 166/94 H 10/10/22 10:49 36.7 C 88 24 181/122 H 95 Room Air 10/10/22 07:47 36.9 C 87 24 218/140 H 96 Room Air all noted and reviewed including below (2) Gout attack Gout site: multiple sites Gout etiology: unspecified cause Qualified Code(s): M10.9 - Gout, unspecified (5) Hyperlipidemia Hyperlipidemia type: unspecified Qualified Code(s): E78.5 - Hyperlipidemia, unspecified
[2022-10-10] MEDS: LABETALOL HCL 300 MG TAB PO SCH (19:41)
[2022-10-10] MEDS ORDERED: FAMOTIDINE 20 MG in SYRINGE 3 ML IV STA (19:42)
[2022-10-10] MEDS ORDERED: LORazepam 2 MG/1 ML VIAL IV STA (19:42)
--- NOTE | 2022-10-10 19:42 | Communication Note ---
Date of Service: October 10, 2022 Patient worsening heartburn symptoms as per RN. AP GERD Possibly precipitated by steroid Rx Famotidine course for now. PPI if without response
[2022-10-10] MEDS ORDERED: LORazepam 0.5 MG TAB PO PRN (19:43)
[2022-10-11] MEDS: hydrALAZINE HCL 20 MG/ML VIAL IV PRN (03:50)
[2022-10-11 06:58] LABS: BUN Creatinine Ratio 17.7 (10-20); Calcium 10.2 mg/dl (8.6-10.3); Creatinine Clr Calc Pharmacy 84.2 ml/min; Est GFR (African American) 63.8 ml/min; Est GFR (Non-African American) 55.1 ml/min; Potassium 3.9 mmol/L (3.5-5.1)
[2022-10-11] MEDS: CHLORTHALIDONE 25 MG TAB PO SCH (08:53)
[2022-10-11] MEDS: SPIRONOLACTONE 100 MG TAB PO SCH (08:53)
[2022-10-11] MEDS: COLCHICINE 0.6 MG TAB PO SCH ×2 (08:53→20:44)
[2022-10-11] MEDS: POTASSIUM CHLORIDE CRTAB 20 MEQ TABCR PO SCH ×3 (08:54→20:45)
[2022-10-11] MEDS: amLODIPine BESYLATE 5 MG TAB PO SCH (08:54)
[2022-10-11] MEDS: ENOXAPARIN INJ 40 MG/0.4 ML SYR SQ SCH (08:54)
[2022-10-11] MEDS: hydrALAZINE TAB 50 MG TAB PO SCH ×4 (08:55→20:45)
[2022-10-11] MEDS: predniSONE 20 MG TAB PO SCH (08:56)
[2022-10-11] MEDS: LOSARTAN POTASSIUM 50 MG TAB PO SCH (08:56)
[2022-10-11] MEDS: LABETALOL HCL 300 MG TAB PO SCH ×3 (08:57→20:45)
[2022-10-11] MEDS: FAMOTIDINE 10 MG TABLET PO SCH ×2 (08:57→20:45)
[2022-10-11] MEDS ORDERED: predniSONE 10 MG TABLET PO SCH (09:00)
--- NOTE | 2022-10-11 09:43 | Hospitalist Progress Note ---
Date of Service October 11, 2022 Assessment & Plan (1) Hypertensive urgency: Plan: As per admitting provider w/addendum Labetalol started in the ER. Patient has been noncompliant with his lisinopril 40mg and amlodipine 5mg per home regimen for the past month. He denies any chest pain or trouble breathing and denies headache. No stroke symptoms present. He does have evidence of acute kidney injury, however, baseline creatinine is unknown. ACEI contraindicated in setting of renal failure but will restart CCB now. 10/11 BP still not at goal Losartan changed to olmesartan Chlorthalidone changed to indapamide Discussed with Dr. Chandler continue Amlodipine, Hydralazine, Spironolactome Echo: severe concentric LVH Kidney US: no obstruction (2) Gout attack: Plan: Pain improved with IV solumedrol in the ER and percocet. 10/11 improving continue to taper Prednisone : 20mg daily Colchicine 0.1mg BID (3) Acute renal failure: Plan: Unknown baseline creatinine with creatinine 1.75 on admission. Crea improved to 1.4 (4) Hypokalemia: Plan: Replaced (5) Hyperlipidemia: Plan: h/o atorvastatin usage. Hold on restarting this for now to minimize any medications interactions or side effects while initiating acute treatment. Recommend establishing care in the area and following up with a primary care physician at discharge. Will perform screening for diabetes with A1C given risk factors for this including obesity, hypertension and hyperlipidemia. Padma Full Code plan of care discussed with patient in detail all questions answered he is understanding, agreeable, comfortable with the plan of care Admission and Anticipated Discharge Date Admission Date: October 06, 2022 Subjective ff up for HTN, etc seen resting in bed, comfortable in good spirits states he feels fine overall no chest pain, dyspnea, palpitations, dizziness L knee pain continues to improve no other symptoms Review of Systems Review of Systems: all noted and negative except for above Physical Exam Physical Exam: General- oriented x 3, not in distress, speaks in sentences with no effort or accessory muscle use Eyes- anicteric Neck- no JVD Lungs- clear breath sounds BL Heart- normal rate, regular rhythm; no murmurs Abdomen- normal bowel sounds, nondistended, soft, no tenderness Extremities- no pretibial edema, no calf tenderness Neuro- alert, oriented x 3; no gross focal neurologic deficits Skin- warm & dry Results & Data Results & Data Vital Signs (Past 12 Hours) Vital Signs Temp Pulse Pulse Resp BP Pulse Ox O2 Del Method 10/11/22 08:05 36.7 C 89 18 165/104 H 96 Room Air 10/11/22 07:38 84 10/11/22 04:50 160/88 H 10/11/22 03:07 36.6 C 92 H 18 189/105 H 94 Room Air 10/11/22 00:10 159/91 H 10/10/22 23:00 93 H 10/10/22 22:52 36.8 C 87 18 176/111 H 96 Room Air all noted and reviewed including below (2) Gout attack Gout site: multiple sites Gout etiology: unspecified cause Qualified Code(s): M10.9 - Gout, unspecified (5) Hyperlipidemia Hyperlipidemia type: unspecified Qualified Code(s): E78.5 - Hyperlipidemia, unspecified
--- NOTE | 2022-10-11 13:26 | Nephrology Progress Note ---
Date of Service October 11, 2022 Assessment & Plan (1) Hypertensive urgency: Plan: In the setting of uncontrolled pain from a gout attack and at least a month without his outpatient medications. For patient in his 30s to have hypertension requiring 2 agents, this is premature hypertension until proven otherwise. He tells me he was dx'd age 19 yrs. severe clvh on [facility] w/ large kidneys BL. Denies any FH of similar issues. Will need close outpatient follow-up. BP in 200-210s/130-140s on presentation. -target SBP is 150-160s to be reached over days > today in 170-180s mostly systolic Continue work to control pain -nocturnal pulse ox unremarkable >>[facility] on [facility] SUSPECT he has hyperaldosteoronism given low K and longstanding HTN -ordered ARR and d/t slow turnaround time did saline load today w/ f/u marleni level are confirmatory test >if aldosterone dx'd, will need CT a/p to look for adenoma or other >continue spironolactone 100 mg daily , D/C chlorthalidone 25 mg daily , add Indapamide > continue K 20 mEq tid,hydralazine increased to 50 mg qid on 10/09,started losartan 100 mg daily and labetalol to 300 mg tid. >I wanted him to be started on Olmesartan instead of Losartan which is not avalible with Pharmacy-- Add clonidine 0.1 mg BID >>if at all feasible pls d/c w/ home bp cuff Care coordinated w/ Dr Kothari. (2) Renal insufficiency: Plan: Unknown baseline renal function. Presenting with creatinine 1.8, down to 1.6 today. Current colchicine dose okay; monitor for appropriateness Daily basic metabolic panel Will need to recheck UACM and quantify protein when blood pressure better controlled -recommend renal u/s given HTN, suspected proteinuria > so ordered consider lead nephropathy or lead-related nephrotoxicity dx given HTN, gout, CKD >> though I reviewed work hx will get ARR in AM Admission and Anticipated Discharge Date Admission Date: October 06, 2022 Subjective ff up for HTN, etc states he feels fine overall no chest pain, dyspnea, palpitations, dizziness Review of Systems Review of Systems: All systems reviewed & are unremarkable except as noted in HPI & below Results & Data Vital Signs (Past 12 Hours) Vital Signs Temp Pulse Pulse Resp BP Pulse Ox O2 Del Method 10/11/22 12:31 36.4 C L 85 20 157/93 H 95 Room Air 10/11/22 08:05 36.7 C 89 18 165/104 H 96 Room Air 10/11/22 07:38 84 10/11/22 04:50 160/88 H 10/11/22 03:07 36.6 C 92 H 18 189/105 H 94 Room Air Laboratory Results 10/08/22 05:27 10/11/22 05:35
[2022-10-11] MEDS ORDERED: OLMESARTAN MEDOXOMIL 20 MG TAB PO ONE (21:00)
[2022-10-12] MEDS: LABETALOL HCL 300 MG TAB PO SCH ×3 (08:14→20:31)
[2022-10-12] MEDS: FAMOTIDINE 10 MG TABLET PO SCH ×2 (08:14→20:31)
[2022-10-12] MEDS: hydrALAZINE TAB 50 MG TAB PO SCH ×4 (08:14→20:31)
[2022-10-12] MEDS: COLCHICINE 0.6 MG TAB PO SCH ×2 (08:14→20:31)
[2022-10-12] MEDS: POTASSIUM CHLORIDE CRTAB 20 MEQ TABCR PO SCH ×3 (08:15→20:31)
[2022-10-12] MEDS: amLODIPine BESYLATE 5 MG TAB PO SCH (08:15)
[2022-10-12] MEDS: INDAPAMIDE 1.25 MG TAB PO SCH (08:16)
[2022-10-12] MEDS: ENOXAPARIN INJ 40 MG/0.4 ML SYR SQ SCH (08:16)
[2022-10-12] MEDS: SPIRONOLACTONE 100 MG TAB PO SCH (08:16)
[2022-10-12] MEDS: predniSONE 20 MG TAB PO SCH (08:16)
[2022-10-12] MEDS: LOSARTAN POTASSIUM 50 MG TAB PO SCH (08:17)
[2022-10-12 08:45] LABS: BUN Creatinine Ratio 19.5 (10-20); Calcium 10.2 mg/dl (8.6-10.3); Creatinine Clr Calc Pharmacy 68.6 ml/min; Est GFR (African American) 49.5 ml/min; Est GFR (Non-African American) 42.7 ml/min; Potassium 4.1 mmol/L (3.5-5.1)
[2022-10-12] MEDS ORDERED: OLMESARTAN MEDOXOMIL 40 MG TAB PO SCH (09:00)
[2022-10-12] MEDS ORDERED: cloNIDine HCL 0.1 MG TAB PO ONE (10:15)
--- NOTE | 2022-10-12 11:05 | Nephrology Progress Note ---
Date of Service October 12, 2022 Assessment & Plan (1) Hypertensive urgency: Plan: In the setting of uncontrolled pain from a gout attack and at least a month without his outpatient medications. For patient in his 30s to have hypertension requiring 2 agents, this is premature hypertension until proven otherwise. He tells me he was dx'd age 19 yrs. severe clvh on [facility] w/ large kidneys BL. Denies any FH of similar issues. Will need close outpatient follow-up. BP in 200-210s/130-140s on presentation. -target SBP is 150-160s to be reached over days > today in 170-180s mostly systolic Continue work to control pain -nocturnal pulse ox unremarkable >>[facility] on [facility]TE SUSPECT he has hyperaldosteoronism given low K and longstanding HTN -ordered ARR and d/t slow turnaround time did saline load today w/ f/u marleni level are confirmatory test >if aldosterone dx'd, will need CT a/p to look for adenoma or other >continue spironolactone 100 mg daily , Indapamide,,hydralazine 50 mg qid , losartan 100 mg daily and labetalol to 300 mg tid, add clonidine .1 mg BID - Final recs regarding antihypertensives at the time of discharge. > continue K supplement >>if at all feasible pls d/c w/ home bp cuff Care coordinated w/ Dr Kothari. (2) Renal insufficiency: Plan: Unknown baseline renal function. Presenting with creatinine 1.9, Fluctuating. Daily basic metabolic panel, will need decreasing Indapamide if BUN rises further, Will need to recheck UACM and quantify protein when blood pressure better controlled consider lead nephropathy or lead-related nephrotoxicity dx given HTN, gout, CKD >> though I reviewed work hx Admission and Anticipated Discharge Date Admission Date: October 06, 2022 Subjective ff up for HTN, etc states he feels fine overall no chest pain, dyspnea, palpitations, dizziness Review of Systems Review of Systems: All systems reviewed & are unremarkable except as noted in HPI & below Results & Data Vital Signs (Past 12 Hours) Vital Signs Temp Pulse Pulse Resp BP BP Pulse Ox 10/12/22 10:55 76 16 121/75 96 10/12/22 07:07 36.6 C 76 16 162/89 H 97 10/12/22 07:05 73 10/12/22 03:19 36.4 C L 82 18 156/97 H 96 10/12/22 00:06 36.7 C 82 18 157/82 H 95 O2 Del Method 10/12/22 10:55 Room Air 10/12/22 07:07 Room Air 10/12/22 07:05 10/12/22 03:19 Room Air 10/12/22 00:06 Room Air Laboratory Results 10/08/22 05:27 10/12/22 08:00
--- NOTE | 2022-10-12 16:55 | Hospitalist Progress Note ---
Date of Service October 12, 2022 Assessment & Plan (1) Hypertensive urgency: Plan: As per admitting provider w/addendum Labetalol started in the ER. Patient has been noncompliant with his lisinopril 40mg and amlodipine 5mg per home regimen for the past month. He denies any chest pain or trouble breathing and denies headache. No stroke symptoms present. He does have evidence of acute kidney injury, however, baseline creatinine is unknown. ACEI contraindicated in setting of renal failure but will restart CCB now. Nephrology consulted Suspecting hyperaldosteronism given low potassium longstanding hypertension 10/12 BP improving, currently systolic 120s Hold clonidine Continue the rest of the regimen Monitor closely Echo: severe concentric LVH Kidney US: no obstruction (2) Gout attack: Plan: Pain improved with IV solumedrol in the ER and percocet. 10/12 Much improved DC prednisone Colchicine 0.1mg BID x1-2 more days (3) Acute renal failure: Plan: Unknown baseline creatinine with creatinine 1.75 on admission. Crea improved to 1.4 (4) Hypokalemia: Plan: Replaced (5) Hyperlipidemia: Plan: h/o atorvastatin usage. Hold on restarting this for now to minimize any medic ations interactions or side effects while initiating acute treatment. Recommend establishing care in the area and following up with a primary care physician at discharge. Will perform screening for diabetes with A1C given risk factors for this including obesity, hypertension and hyperlipidemia. Padma Full Code plan of care discussed with patient in detail all questions answered he is understanding, agreeable, comfortable with the plan of care Admission and Anticipated Discharge Date Admission Date: October 06, 2022 Subjective Follow-up for hypertension, etc. Seen resting in bed, sitting up, not in distress States he feels fine overall Denies dizziness, headache, nausea vomiting, abdominal pain Left knee pain continues to improve Ambulating better Review of Systems Review of Systems: all noted and negative except for above Physical Exam Physical Exam: General- oriented x 3, not in distress, speaks in sentences with no effort or accessory muscle use Eyes- anicteric Neck- no JVD Lungs- clear breath sounds bilaterally, no rales/wheezes Heart- normal rate, regular rhythm; no murmurs Abdomen- normal bowel sounds, nondistended, soft, nontender Extremities- no pretibial edema, no calf tenderness Left knee: No edema/warmth/tenderness Neuro- alert, oriented x 3; no gross focal neurologic deficits Skin- warm & dry Results & Data Results & Data Vital Signs (Past 12 Hours) Vital Signs Temp Pulse Pulse Resp BP BP Pulse Ox 10/12/22 16:40 80 10/12/22 15:37 36.7 C 89 18 124/70 96 10/12/22 14:00 127/73 10/12/22 10:55 76 16 121/75 96 10/12/22 07:07 36.6 C 76 16 162/89 H 97 10/12/22 07:05 73 O2 Del Method 10/12/22 16:40 10/12/22 15:37 Room Air 10/12/22 14:00 10/12/22 10:55 Room Air 10/12/22 07:07 Room Air 10/12/22 07:05 all noted and reviewed including below (2) Gout attack Gout site: multiple sites Gout etiology: unspecified cause Qualified Code(s): M10.9 - Gout, unspecified (5) Hyperlipidemia Hyperlipidemia type: unspecified Qualified Code(s): E78.5 - Hyperlipidemia, unspecified
[2022-10-12] MEDS ORDERED: cloNIDine HCL 0.1 MG TAB PO SCH (21:00)
[2022-10-13] MEDS: COLCHICINE 0.6 MG TAB PO SCH (09:08)
[2022-10-13] MEDS: hydrALAZINE TAB 50 MG TAB PO SCH ×4 (09:09→20:54)
[2022-10-13] MEDS: LABETALOL HCL 300 MG TAB PO SCH ×3 (09:09→20:55)
[2022-10-13] MEDS: POTASSIUM CHLORIDE CRTAB 20 MEQ TABCR PO SCH (09:09)
[2022-10-13] MEDS: SPIRONOLACTONE 100 MG TAB PO SCH (09:10)
[2022-10-13] MEDS: amLODIPine BESYLATE 5 MG TAB PO SCH (09:10)
[2022-10-13] MEDS: INDAPAMIDE 1.25 MG TAB PO SCH (09:11)
[2022-10-13] MEDS: ENOXAPARIN INJ 40 MG/0.4 ML SYR SQ SCH (09:12)
[2022-10-13] MEDS: LOSARTAN POTASSIUM 50 MG TAB PO SCH (09:12)
[2022-10-13] MEDS: FAMOTIDINE 10 MG TABLET PO SCH ×2 (09:13→20:55)
[2022-10-13 10:04] LABS: BUN Creatinine Ratio 19.1 (10-20); Calcium 10.4 mg/dl (8.6-10.3); Creatinine Clr Calc Pharmacy 58.3 ml/min; Est GFR (African American) 40.5 ml/min
--- NOTE | 2022-10-13 12:13 | Nephrology Progress Note ---
Date of Service October 13, 2022 Assessment & Plan Admission and Anticipated Discharge Date Admission Date: October 06, 2022 Subjective Assessment & Plan (1) Hypertensive urgency: Plan: In the setting of uncontrolled pain from a gout attack and at least a month without his outpatient medications. For patient in his 30s to have hypertension requiring 2 agents, this is premature hypertension until proven otherwise. He tells me he was dx'd age 19 yrs. severe clvh on [facility] w/ large kidneys BL. Denies any FH of similar issues. Will need close outpatient follow-up. BP in 200-210s/130-140s on presentation. -target SBP is 150-160s to be reached over days Findings consistent with hyperaldosteoronism given low K and longstanding HTN He did have ARR and d/t slow turnaround time did saline load today w/ f/u marleni level are confirmatory test If hyperaldosteronism diagnosed he will need CT a/p to look for adenoma or other Sodium is dropping kidney function getting worse so given this stopped indapamide At and with that we will also lower the potassium supplement to 20 daily Continue other medication including spironolactone 100 (2) Renal insufficiency: Plan: Unknown baseline renal function. Presenting with creatinine 1.8 and then got better but now is getting worse and and creatinine is up to 2.3 and uptrending. Given this I would like to monitor at least 1 more day day. Prefer that his creatinine is not still rising at the time of his discharge. Will need to recheck UACM and quantify protein when blood pressure better controlled and this can be done as an outpatient He will need nephrology follow-up within 1 week of hospital discharge. Subjective no acute interval events. He feels fine and denies any complaint and wants to go home today. Blood pressure seems a lot better Review of Systems Review of Systems: All systems reviewed & are unremarkable except as noted in Subjective Physical Exam Constitutional: well developed, well nourished, + obese and cooperative; no acute distress Eyes: EOM intact bilaterally ENMT: Ears: no external ear abnormality Nose: no external nose abnormality Mouth: + dry oral mucous membranes Neck: no nuchal rigidity Respiratory: normal respiratory effort Auscultation: + diminished lung sounds Cardiovascular: Rate/Rhythm: regular rhythm and + tachycardic Extremities: no edema Gastrointestinal (Abdomen): Inspection/Auscultation: normal bowel sounds Percussion/Palpation: abdomen soft; abdomen nontender (no abdominal bruit) Musculoskeletal: Extremities: strength 5/5 throughout Skin: no rashes, warm and dry Neurologic: beltran, fluent speech, no tremor Psychiatric: Orientation: alert and oriented x 3 Speech: normal rate/rhythm/volume of speech Insight: good insight Judgment: good judgement Results & Data Vital Signs (Past 12 Hours) Vital Signs Temp Pulse Pulse Resp BP BP Pulse Ox 10/13/22 10:47 36.5 C 76 20 158/96 H 96 10/13/22 07:35 36.6 C 75 21 166/99 H 96 10/13/22 06:57 72 10/13/22 03:23 36.4 C L 78 18 147/82 H 97 O2 Del Method 10/13/22 10:47 Room Air 10/13/22 07:35 Room Air 10/13/22 06:57 10/13/22 03:23 Room Air
[2022-10-13] MEDS: cloNIDine HCL 0.1 MG TAB PO SCH ×2 (12:39→20:54)
--- NOTE | 2022-10-13 18:24 | Hospitalist Progress Note ---
Date of Service October 13, 2022 Assessment & Plan (1) Hypertensive urgency: Plan: As per admitting provider w/addendum Labetalol started in the ER. Patient has been noncompliant with his lisinopril 40mg and amlodipine 5mg per home regimen for the past month. He denies any chest pain or trouble breathing and denies headache. No stroke symptoms present. He does have evidence of acute kidney injury, however, baseline creatinine is unknown. ACEI contraindicated in setting of renal failure but will restart CCB now. Nephrology consulted Suspecting hyperaldosteronism given low potassium longstanding hypertension 10/13 BP improving, creatinine increased to 2.4 Stop indapamide Continue clonidine, losartan, amlodipine, hydralazine, labetalol Monitor closely Repeat labs tomorrow Echo: severe concentric LVH Kidney US: no obstruction (2) Gout attack: Plan: Pain improved with IV solumedrol in the ER and percocet. 10/13 resolved DC prednisone and colchicine (3) Acute renal failure: Plan: Unknown baseline creatinine with creatinine 1.75 on admission. Crea improved to 1.4 (4) Hypokalemia: Plan: Replaced (5) Hyperlipidemia: Plan: h/o atorvastatin usage. Hold on restarting this for now to minimize any medications interactions or side effects while initiating acute treatment. Recommend establishing care in the area and following up with a primary care physician at discharge. Will perform screening for diabetes with A1C given risk factors for this including obesity, hypertension and hyperlipidemia. Padma Full Code plan of care discussed with patient in detail all questions answered he is understanding, agreeable, comfortable with the plan of care Admission and Anticipated Discharge Date Admission Date: October 06, 2022 Subjective Follow-up for hypertension Etc. Seen resting in bed, comfortable, watching TV States he feels fine overall no chest pain, dyspnea, palpitations, dizziness Left knee pain mostly resolved No other symptoms Review of Systems Review of Systems: all noted and negative except for above Physical Exam Physical Exam: General- oriented x 3, not in distress, speaks in sentences with no effort or accessory muscle use Eyes- anicteric Neck- no JVD Lungs- clear breath sounds bilaterally, no rales/wheezes Heart- normal rate, regular rhythm; no murmurs Abdomen- normal bowel sounds, nondistended, soft, nontender Extremities- no pretibial edema, no calf tenderness Neuro- alert, oriented x 3; no gross focal neurologic deficits Skin- warm & dry Results & Data Results & Data Vital Signs (Past 12 Hours) Vital Signs Temp Pulse Pulse Resp BP BP Pulse Ox 10/13/22 08:05 10/13/22 15:41 36.8 C 80 22 147/81 H 97 10/13/22 15:26 82 10/13/22 10:47 36.5 C 76 20 158/96 H 96 10/13/22 07:35 36.6 C 75 21 166/99 H 96 10/13/22 06:57 72 O2 Del Method 10/13/22 08:05 Room Air 10/13/22 15:41 Room Air 10/13/22 15:26 10/13/22 10:47 Room Air 10/13/22 07:35 Room Air 10/13/22 06:57 all noted and reviewed including below (2) Gout attack Gout site: multiple sites Gout etiology: unspecified cause Qualified Code(s): M10.9 - Gout, unspecified (5) Hyperlipidemia Hyperlipidemia type: unspecified Qualified Code(s): E78.5 - Hyperlipidemia, unspecified
[2022-10-14 08:01] LABS: BUN Creatinine Ratio 19.7 (10-20); Calcium 10.4 mg/dl (8.6-10.3); Creatinine Clr Calc Pharmacy 54.7 ml/min; Est GFR (African American) 37.7 ml/min; Est GFR (Non-African American) 32.6 ml/min; Potassium 4.6 mmol/L (3.5-5.1)
[2022-10-14] MEDS: amLODIPine BESYLATE 5 MG TAB PO SCH (09:54)
[2022-10-14] MEDS: ENOXAPARIN INJ 40 MG/0.4 ML SYR SQ SCH (09:54)
[2022-10-14] MEDS: cloNIDine HCL 0.1 MG TAB PO SCH ×2 (09:55→21:00)
[2022-10-14] MEDS: FAMOTIDINE 10 MG TABLET PO SCH ×2 (09:55→21:01)
[2022-10-14] MEDS: LABETALOL HCL 300 MG TAB PO SCH ×3 (09:56→20:59)
[2022-10-14] MEDS: SPIRONOLACTONE 100 MG TAB PO SCH (09:56)
[2022-10-14] MEDS: hydrALAZINE TAB 50 MG TAB PO SCH ×3 (09:56→20:57)
[2022-10-14] MEDS: LOSARTAN POTASSIUM 50 MG TAB PO SCH (09:56)
[2022-10-14] MEDS: POTASSIUM CHLORIDE CRTAB 20 MEQ TABCR PO SCH (09:56)
--- NOTE | 2022-10-14 10:35 | Nephrology Progress Note ---
Date of Service October 14, 2022 Assessment & Plan Admission and Anticipated Discharge Date Admission Date: October 06, 2022 Subjective Assessment & Plan (1) Hypertensive urgency: Plan: In the setting of uncontrolled pain from a gout attack and at least a month without his outpatient medications. For patient in his 30s to have hypertension requiring 2 agents, this is premature hypertension until proven otherwise. He tells me he was dx'd age 19 yrs. severe clvh on [facility] w/ large kidneys BL. Denies any FH of similar issues. Will need close outpatient follow-up. BP in 200-210s/130-140s on presentation. -target SBP is 150-160s to be reached over days Findings consistent with hyperaldosteoronism given low K and longstanding HTN He did have ARR and d/t slow turnaround time did saline load today w/ f/u marleni level are confirmatory test If hyperaldosteronism diagnosed he will need CT a/p to look for adenoma or other Sodium is dropping kidney function getting worse so given this stopped indapamide but already got yesterday dose. At and with that we will also lower the potassium supplement to 20 daily Continue other medication including spironolactone 100 Lower Hydralazine to 50 tid. Can be discharged on this med list today. However will have to sort out his Insurance and cost of meds before discharge (2) Renal insufficiency: Plan: Unknown baseline renal function. Presenting with creatinine 1.8 and then got better but now is getting worse and and creatinine is up to 2.4 and uptrending slightly. Given this I would like to monitor at least 1 more day day. Prefer that his creatinine is not still rising at the time of his discharge. But he really wants to go home Will need to recheck UACM and quantify protein when blood pressure better controlled and this can be done as an outpatient He will need nephrology follow-up within 1 week of hospital discharge. Subjective no acute interval events. He feels fine and denies any complaint and wants to go home today. Blood pressure seems a lot better Review of Systems Review of Systems: All systems reviewed & are unremarkable except as noted in Subjective Physical Exam Constitutional: well developed, well nourished, + obese and cooperative; no acute distress Eyes: EOM intact bilaterally ENMT: Ears: no external ear abnormality Nose: no external nose abnormality Mouth: + dry oral mucous membranes Neck: no nuchal rigidity Respiratory: normal respiratory effort Auscultation: + diminished lung sounds Cardiovascular: Rate/Rhythm: regular rhythm and + tachycardic Extremities: no edema Gastrointestinal (Abdomen): Inspection/Auscultation: normal bowel sounds Percussion/Palpation: abdomen soft; abdomen nontender (no abdominal bruit) Musculoskeletal: Extremities: strength 5/5 throughout Skin: no rashes, warm and dry Neurologic: beltran, fluent speech, no tremor Psychiatric: Orientation: alert and oriented x 3 Speech: normal rate/rhythm/volume of speech Insight: good insight Judgment: good judgement Results & Data Vital Signs (Past 12 Hours) Vital Signs Temp Pulse Pulse Resp BP Pulse Ox O2 Del Method 10/14/22 07:36 36.5 C 66 22 144/85 H 96 Room Air 10/14/22 07:16 68 10/14/22 04:24 36.8 C 71 16 126/81 95 Room Air 10/13/22 23:00 76 10/13/22 23:55 36.5 C 76 18 113/62 97 Room Air
--- NOTE | 2022-10-14 14:00 | Hospitalist Progress Note ---
Date of Service October 14, 2022 Assessment & Plan (1) Hypertensive urgency: Plan: (1) Hypertensive urgency: Plan: Nephrology consulted Suspecting hyperaldosteronism given low potassium longstanding hypertension 10/14 BP improved, now 122/79 crea increased 1.5 --> 1.9 --> 2.3 --> 2.[address] Johnson, claudette for discharge, ff up with Nephro in 1 week patient's concerned and would like to have crea monitored Indapamide stopped 2 days ago Continue spironolactone, clonidine, losartan, amlodipine, hydralazine, labetalol Monitor closely Repeat labs tomorrow Echo: severe concentric LVH Kidney US: no obstruction (2) Gout attack: Plan: 10/14 resolved with IV solumedrol, prednisone and colchicine (3) Acute renal failure: Plan: Unknown baseline creatinine with creatinine 1.75 on admission. management per above (4) Hypokalemia: Plan: Replaced (5) Hyperlipidemia: Plan: h/o atorvastatin usage. Hold on restarting this for now to minimize any medications interactions or side effects while initiating acute treatment. Recommend establishing care in the area and following up with a primary care p raymundo at discharge. Will perform screening for diabetes with A1C given risk factors for this including obesity, hypertension and hyperlipidemia. Padma Full Code plan of care discussed with patient in detail all questions answered he is understanding, agreeable, comfortable with the plan of care Admission and Anticipated Discharge Date Admission Date: October 06, 2022 Subjective ff up for hypertensive urgency, etc seen resting in bed, comfortable in good spirits states he feels fine overall no chest pain, dyspnea, palpitations, dizziness no knee pain, ambulating fine no other symptoms Review of Systems Review of Systems: all noted and negative except for above Physical Exam Physical Exam: General- oriented x 3, not in distress, speaks in sentences with no effort or accessory muscle use Eyes- anicteric Neck- no JVD Lungs- clear breath sounds bilaterally, no crackles or wheezing Heart- normal rate, regular rhythm; no murmurs Abdomen- normal bowel sounds, nondistended, soft, no tenderness Extremities- no pretibial edema, no calf tenderness L knee: no warmth, edema, tenderness Neuro- alert, oriented x 3; no gross focal neurologic deficits Skin- warm & dry Results & Data Results & Data Vital Signs (Past 12 Hours) Vital Signs Temp Pulse Pulse Resp BP BP Pulse Ox 10/14/22 12:43 10/14/22 10:48 36.6 C 78 24 122/79 96 10/14/22 07:36 36.5 C 66 22 144/85 H 96 10/14/22 07:16 68 10/14/22 04:24 36.8 C 71 16 126/81 95 O2 Del Method 10/14/22 12:43 Room Air 10/14/22 10:48 Room Air 10/14/22 07:36 Room Air 10/14/22 07:16 10/14/22 04:24 Room Air all noted and reviewed including below
[2022-10-15] MEDS: POTASSIUM CHLORIDE CRTAB 20 MEQ TABCR PO SCH (07:45)
[2022-10-15] MEDS: cloNIDine HCL 0.1 MG TAB PO SCH ×2 (07:47→19:47)
[2022-10-15] MEDS: FAMOTIDINE 10 MG TABLET PO SCH ×2 (07:48→19:47)
[2022-10-15] MEDS: hydrALAZINE TAB 50 MG TAB PO SCH ×3 (07:48→19:48)
[2022-10-15] MEDS: SPIRONOLACTONE 100 MG TAB PO SCH (07:48)
[2022-10-15] MEDS: LOSARTAN POTASSIUM 50 MG TAB PO SCH (07:49)
[2022-10-15] MEDS: ENOXAPARIN INJ 40 MG/0.4 ML SYR SQ SCH (07:49)
[2022-10-15] MEDS: amLODIPine BESYLATE 5 MG TAB PO SCH (07:49)
[2022-10-15] MEDS: LABETALOL HCL 300 MG TAB PO SCH ×3 (07:50→19:47)
[2022-10-15 08:23] LABS: Calcium 10.2 mg/dl (8.6-10.3); Creatinine Clr Calc Pharmacy 46.9 ml/min; Est GFR (African American) 31.5 ml/min; Est GFR (Non-African American) 27.2 ml/min; Potassium 4.8 mmol/L (3.5-5.1)
--- NOTE | 2022-10-15 10:16 | Nephrology Progress Note ---
Date of Service October 15, 2022 Assessment & Plan Admission and Anticipated Discharge Date Admission Date: October 06, 2022 Subjective Assessment & Plan (1) Hypertensive urgency: Plan: In the setting of uncontrolled pain from a gout attack and at least a month without his outpatient medications. For patient in his 30s to have hypertension requiring 2 agents, this is premature hypertension until proven otherwise. He tells me he was dx'd age 19 yrs. severe clvh on [facility] w/ large kidneys BL. Denies any FH of similar issues. Will need close outpatient follow-up. BP in 200-210s/130-140s on presentation. -target SBP is 150-160s to be reached over days Bakari level done pre and post was about same and not consistent with Hyperaldosteronism. BP is much better but now having consistent daily increase in Creat and also K. Rec: Stop Losartan Stop K supplement. Daily labs. NS 1000 ml today given rising creat. BP dropped from Super high to normal now and sometime kidneys dont like this big change in BP Stop aldactone also ( already got morning dose) will decide after labs tomorrow Check Prot/creat. He will need nephrology follow-up within 1 week of hospital discharge. (2) Renal insufficiency: Plan: Unknown baseline renal function. Presenting with creatinine 1.8 and then got better but now is getting worse and and creatinine is up to 2.8 and up trending slightly. Given this I would like to monitor at least 1 more day day. Prefer that his creatinine is not still rising at the time of his discharge. But he really wants to go home Will need to recheck UACM and quantify protein when blood pressure better controlled and this can be done as an outpatient Subjective no acute interval events. He feels fine and denies any complaint and wants to go home today. Blood pressure seems a lot better Review of Systems Review of Systems: All systems reviewed & are unremarkable except as noted in Subjective Physical Exam Constitutional: well developed, well nourished, + obese and cooperative; no acute distress Eyes: EOM intact bilaterally ENMT: Ears: no external ear abnormality Nose: no external nose abnormality Mouth: + dry oral mucous membranes Neck: no nuchal rigidity C Respiratory: normal respiratory effort Auscultation: + diminished lung sounds Cardiovascular: Rate/Rhythm: regular rhythm and + tachycardic Extremities: no edema Gastrointestinal (Abdomen): Inspection/Auscultation: normal bowel sounds Percussion/Palpation: abdomen soft; abdomen nontender (no abdominal bruit) Musculoskeletal: Extremities: strength 5/5 throughout Skin: no rashes, warm and dry Neurologic: beltran, fluent speech, no tremor Psychiatric: Orientation: alert and oriented x 3 Speech: normal rate/rhythm/volume of speech Insight: good insight Judgment: good judgement Results & Data Vital Signs (Past 12 Hours) Vital Signs Temp Pulse Pulse Resp BP BP Pulse Ox 10/15/22 07:20 36.5 C 69 23 126/86 95 10/15/22 07:33 77 10/15/22 04:00 36.6 C 76 16 118/82 95 10/14/22 23:00 73 10/14/22 23:20 36.6 C 78 16 100/68 94 O2 Del Method 10/15/22 07:20 Room Air 10/15/22 07:33 10/15/22 04:00 Room Air 10/14/22 23:00 10/14/22 23:20 Room Air
[2022-10-15] MEDS ORDERED: SODIUM CHLORIDE 0.9% 1000ML 1,000 ML IV ONE (10:17)
[2022-10-15 11:48] LABS: Total Protein Urine Random 8.8 mg/dl (0-11.9)
[2022-10-15 11:53] LABS: Creatinine Urine Random 42.2 mg/dl; Protein Creatinine Ratio Urine 0.2 (0-0.2)
--- NOTE | 2022-10-15 15:35 | Hospitalist Progress Note ---
Date of Service October 15, 2022 Assessment & Plan (1) Hypertensive urgency: Plan: (1) Hypertensive urgency: Plan: Admitted with worsening left knee and ankle pain secondary to gout and noted to have very high blood pressure in the emergency room at 218/134 He was not taking his lisinopril and amlodipine for the last month Received intravenous labetalol and is started on his usual home radiation regimen Nephrology consulted-appreciate input and recommendation Suspecting hyperaldosteronism given low potassium longstanding hypertension Received indapamide which was stopped on 10/12/2022 Started on spironolactone, clonidine, losartan, amlodipine, hydralazine and labetalol Echo: severe concentric LVH Kidney US: no obstruction Blood pressure has been running around 120s to 130s systolic but creatinine has been going up Appreciate nephrology follow-up today and losartan, spironolactone and potassium supplements were stopped You will receive 1000 mL of normal saline infusion Monitor PRP-if creatinine improving will be sent home tomorrow Will need follow-up with nephrology as an outpatient within 1 week (2) Gout attack: Plan: Resolved with IV solumedrol, prednisone and colchicine (3) Acute renal failure: Plan: Unknown baseline creatinine with creatinine 1.75 on admission. management per above Creatinine has been going up and it went up to 2.83 as of 10/15/2022 Medications updated and will monitor PRP (4) Hypokalemia: Plan: Replaced (5) Hyperlipidemia: Plan: h/o atorvastatin usage. Hold on restarting this for now to minimize any medications interactions or side effects while initiating acute treatment. Recommend establishing care in the area and following up with a primary care physician at discharge. Will perform screening for diabetes with A1C given risk factors for this including obesity, hypertension and hyperlipidemia. Lovenox Full Code plan of care discussed with patient in detail all questions answered he is understanding, agreeable, comfortable with the plan of care Discussed with the in detail Admission and Anticipated Discharge Date Admission Date: October 06, 2022 Subjective 10/15/2022 The patient was seen and examined in telemetry unit He does not have any complaints but his creatinine is creeping up Blood pressure is well controlled Denies any headache, chest pain, palpitation or shortness of breath Review of Systems Review of Systems: All systems reviewed and are unremarkable except as noted below Physical Exam Physical Exam: Lying in bed comfortably Constitutional: well developed, well nourished and + obese; not ill appearing Eyes: PERRL, conjunctivae normal, anicteric sclerae ENMT: external ear and nose normal, oropharynx normal Neck: trachea midline, no thyromegaly Respiratory: no respiratory distress Auscultation: lungs clear to auscultat ion bilaterally Cardiovascular: Rate/Rhythm: regular rate and regular rhythm; not tachycardic Heart Sounds: normal S1 and normal S2; no murmur Extremities: no edema Gastrointestinal (Abdomen): Inspection/Auscultation: normal bowel sounds; abdomen not distended Percussion/Palpation: abdomen soft; abdomen nontender Musculoskeletal: No acute arthritis involving any of the joint Neurologic: normal touch/pain/proprioception and moves all extremities; no focal motor deficits Psychiatric: A+Ox3, euthymic affect Lymphatic: no cervical or axillary lymphadenopathy Results & Data Results & Data Vital Signs (Past 12 Hours) Vital Signs Temp Pulse Pulse Pulse Resp BP BP 10/15/22 13:45 70 130/74 10/15/22 10:40 36.5 C 72 24 118/75 10/15/22 07:20 36.5 C 69 23 126/86 10/15/22 07:33 77 10/15/22 04:00 36.6 C 76 16 118/82 Pulse Ox O2 Del Method 10/15/22 13:45 10/15/22 10:40 97 Room Air 10/15/22 07:20 95 Room Air 10/15/22 07:33 10/15/22 04:00 95 Room Air Laboratory Results BMP 10/15/22 06:56 Sodium 132 L Potassium 4.8 Chloride 101 Carbon Dioxide 24 BUN 51 H Creatinine 2.83 H D Glucose 86 Calcium 10.2 Medications Administered Current Inpatient Medications Acetaminophen (Acetaminophen 500 Mg Tab) 1,000 mg PO Q8H PRN PRN Reason: nausea/vomiting Stop: 11/05/22 18:40 Last Admin: 10/10/22 12:26 Dose: 1,000 mg Amlodipine Besylate (Amlodipine Besylate 5 Mg Tab) 10 mg PO QAM [facility] Stop: 11/08/22 00:39 Last Admin: 10/15/22 07:49 Dose: 10 mg Calcium Carbonate (Calcium Carbonate 500 Mg Chewable Tab) 1,500 mg PO Q6H PRN PRN Reason: Indigestion Stop: 11/09/22 16:39 Last Admin: 10/10/22 17:24 Dose: 1,500 mg Clonidine HCl (Clonidine Hcl 0.1 Mg Tab) 0.1 mg PO BID [facility] Stop: 11/12/22 11:59 Last Admin: 10/15/22 07:47 Dose: 0.1 mg Enoxaparin Sodium (Enoxaparin Inj 40 Mg/0.4 Ml Syr) 40 mg SQ QAM [facility] Stop: 11/06/22 08:59 Last Admin: 10/15/22 07:49 Dose: 40 mg Famotidine (Famotidine 10 Mg Tablet) 10 mg PO BID [facility] Stop: 11/10/22 08:59 Last Admin: 10/15/22 07:48 Dose: 10 mg Hydralazine HCl (Hydralazine Hcl 20 Mg/Ml Vial) 5 mg IV Q6H PRN PRN Reason: systolic bp > 160 Stop: 11/07/22 07:40 Last Admin: 10/11/22 03:50 Dose: 5 mg Hydralazine HCl (Hydralazine Tab 50 Mg Tab) 50 mg PO TID [facility] Stop: 11/13/22 13:59 Last Admin: 10/15/22 13:44 Dose: 50 mg Labetalol HCl (Labetalol Hcl 300 Mg Tab) 300 mg PO TID [facility] Stop: 11/09/22 20:59 Last Admin: 10/15/22 13:44 Dose: 300 mg Lorazepam (Lorazepam 0.5 Mg Tab) 0.5 mg PO TID PRN PRN Reason: Anxiety Stop: 11/09/22 19:42 Morphine Sulfate (Morphine Sulfate 4 Mg/Ml 1 Ml Carp\Vial) 4 mg IV Q4H PRN PRN Reason: severe pain (7+) Stop: 10/20/22 18:40 Last Admin: 10/06/22 20:02 Dose: 4 mg Ondansetron HCl (Ondansetron Inj 2 Mg/Ml 2 Ml Vial) 4 mg IV Q6H PRN PRN Reason: Nausea Stop: 11/05/22 18:40 Oxycodone HCl (Oxycodone Hcl Ir 5 Mg Tab (Immediate Release)) 5 mg PO Q6H PRN PRN Reason: severe pain (7+) Stop: 10/20/22 18:40 Last Admin: 10/08/22 08:54 Dose: 5 mg Polyethylene Glycol (Polyethylene (Miralax) 17 Gm Pack) 17 gm PO DAILY PRN PRN Reason: Constipation Stop: 11/05/22 18:40
[2022-10-16 06:59] LABS: BUN Creatinine Ratio 16.9 (10-20); Calcium 10.3 mg/dl (8.6-10.3); Creatinine Clr Calc Pharmacy 49.8 ml/min; Est GFR (Non-African American) 29.3 ml/min; Potassium 4.7 mmol/L (3.5-5.1)
[2022-10-16] MEDS: hydrALAZINE TAB 50 MG TAB PO SCH (09:26)
[2022-10-16] MEDS: FAMOTIDINE 10 MG TABLET PO SCH (09:27)
[2022-10-16] MEDS: LABETALOL HCL 300 MG TAB PO SCH (09:27)
[2022-10-16] MEDS: cloNIDine HCL 0.1 MG TAB PO SCH (09:27)
[2022-10-16] MEDS: amLODIPine BESYLATE 5 MG TAB PO SCH (09:27)
[2022-10-16] MEDS: ENOXAPARIN INJ 40 MG/0.4 ML SYR SQ SCH (09:27)
--- NOTE | 2022-10-16 11:09 | Nephrology Progress Note ---
Date of Service October 16, 2022 Assessment & Plan Admission and Anticipated Discharge Date Admission Date: October 06, 2022 Subjective Assessment & Plan (1) Hypertensive urgency: Plan: In the setting of uncontrolled pain from a gout attack and at least a month without his outpatient medications. For patient in his 30s to have hypertension requiring 2 agents, this is premature hypertension until proven otherwise. He tells me he was dx'd age 19 yrs. severe clvh on [facility] w/ large kidneys BL. Denies any FH of similar issues. Will need close outpatient follow-up. BP in 200-210s/130-140s on presentation. -target SBP is 150-160s to be reached over days Bakari level done pre and post was about same and not consistent with Hyperaldosteronism. Also noted proteinuria was 0.2 based on the urine protein to creatinine ratio done yesterday after many days of good blood pressure control BP is much better and has been now for last 4 days . Rec: renal function better than yesterday but still sodium is low. So given this I would like to hold off on the thiazide Aldactone and losartan for the time being. for Discharge: Amlo 10, labetolol 300 bid, Hydralazine 100 bid. Clonidine 0.1 bid. Given his prior history of multiple factorial nonadherence would like to avoid 3 times daily medicine for better compliance accept BP goal of 150/90 for short term He will need nephrology follow-up within 1 week of hospital discharge to further adjust the meds and follow renal panel. (2) Renal insufficiency: Plan: Unknown baseline renal function. Presenting with creatinine 1.8 and then got better but now is getting worse and and creatinine is up to 2.8 and today went down a bit. Given this I would like to monitor at least 1 more day day. Prefer that his creatinine is not still rising at the time of his discharge. But he really wants to go home Will need to recheck UACM and quantify protein when blood pressure better controlled and this can be done as an outpatient Subjective no acute interval events. He feels fine and denies any complaint and wants to go home today. Blood pressure seems a lot better Review of Systems Review of Systems: All systems reviewed & are unremarkable except as noted in Subjective Physical Exam Constitutional: well developed, well nourished, + obese and cooperative; no acute distress Eyes: EOM intact bilaterally ENMT: Ears: no external ear abnormality Nose: no external nose abnormality Mouth: + dry oral mucous membranes Neck: no nuchal rigidity Respiratory: normal respiratory effort Auscultation: + diminished lung sounds Cardiovascular: Rate/Rhythm: regular rhythm and + tachycardic Extremities: no edema Gastrointestinal (Abdomen): Inspection/Auscultation: normal bowel sounds Percussion/Palpation: abdomen soft; abdomen nontender (no abdominal bruit) Musculoskeletal: Extremities: strength 5/5 throughout C Skin: no rashes, warm and dry Neurologic: beltran, fluent speech, no tremor Psychiatric: Orientation: alert and oriented x 3 Speech: normal rate/rhythm/volume of speech Insight: good insight Judgment: good judgement Results & Data Vital Signs (Past 12 Hours) Vital Signs Temp Pulse Resp BP Pulse Ox O2 Del Method 10/16/22 07:56 36.6 C 75 20 122/84 98 Room Air 10/16/22 03:00 36.3 C L 65 14 115/80 96 Room Air
--- NOTE | 2022-10-16 11:22 | Hospitalist Progress Note ---
Date of Service October 16, 2022 Assessment & Plan (1) Hypertensive urgency: Plan: (1) Hypertensive urgency: Plan: Admitted with worsening left knee and ankle pain secondary to gout and noted to have very high blood pressure in the emergency room at 218/134 He was not taking his lisinopril and amlodipine for the last month Received intravenous labetalol and is started on his usual home radiation regimen Nephrology consulted-appreciate input and recommendation Suspecting hyperaldosteronism given low potassium longstanding hypertension Received indapamide which was stopped on 10/12/2022 Started on spironolactone, clonidine, losartan, amlodipine, hydralazine and labetalol Echo: severe concentric LVH Kidney US: no obstruction Blood pressure has been running around 120s to 130s systolic but creatinine has been going up Appreciate nephrology follow-up today and losartan, spironolactone and potassium supplements were stopped You will receive 1000 mL of normal saline infusion Monitor PRP-if creatinine improving will be sent home tomorrow Will need follow-up with nephrology as an outpatient within 1 week Kidney function is improving and the blood pressure remains controlled with current medications He will be discharged home this afternoon Strongly advised to take medications regularly and keep follow-up appointments with the providers (2) Gout attack: Plan: Resolved with IV solumedrol, prednisone and colchicine (3) Acute renal failure: Plan: Unknown baseline creatinine with creatinine 1.75 on admission. management per above Creatinine has been going up and it went up to 2.83 as of 10/15/2022 Medications updated and will monitor PRP Creatinine is 2.66 today (4) Hypokalemia: Plan: Replaced (5) Hyperlipidemia: Plan: h/o atorvastatin usage. Hold on restarting this for now to minimize any medications interactions or side effects while initiating acute treatment. Recommend establishing care in the area and following up with a primary care physician at discharge. Will perform screening for diabetes with A1C given risk factors for this including obesity, hypertension and hyperlipidemia. Olegariox Full Code plan of care discussed with patient in detail all questions answered he is understanding, agreeable, comfortable with the plan of care Discussed with the patient and the in the room Discharged home this afternoon Admission and Anticipated Discharge Date Admission Date: October 06, 2022 Subjective 10/15/2022 The patient was seen and examined in telemetry unit He does not have any complaints but his creatinine is creeping up Blood pressure is well controlled Denies any headache, chest pain, palpitation or shortness of breath 10/16/2022 The patient was seen and examined in telemetry unit in presence of the He denies any symptoms or any complaints Blood pressure remains stable and the kidney function has been getting better He will be discharged home this afternoon Review of Systems Review of Systems: All systems reviewed and are unremarkable except as noted below Physical Exam Physical Exam: Lying in bed comfortably Constitutional: well developed, well nourished and + obese; not ill appearing Eyes: PERRL, conjunctivae normal, anicteric sclerae ENMT: external ear and nose normal, oropharynx normal Neck: trachea midline, no thyromegaly Respiratory: no respiratory distress Auscultation: lungs clear to auscultation bilaterally Cardiovascular: Rate/Rhythm: regular rate and regular rhythm; not tachycardic Heart Sounds: normal S1 and normal S2; no murmur Extremities: no edema Gastrointestinal (Abdomen): Inspection/Auscultation: normal bowel sounds; abdomen not distended Percussion/Palpation: abdomen soft; abdomen nontender Musculoskeletal: No acute arthritis involving any of the joint Neurologic: normal touch/pain/proprioception and moves all extremities; no focal motor deficits Psychiatric: A+Ox3, euthymic affect Lymphatic: no cervical or axillary lymphadenopathy Results & Data Results & Data Vital Signs (Past 12 Hours) Vital Signs Temp Pulse Resp BP Pulse Ox O2 Del Method 10/16/22 07:56 36.6 C 75 20 122/84 98 Room Air 10/16/22 03:00 36.3 C L 65 14 115/80 96 Room Air Laboratory Results [facility] 10/16/22 05:41 Sodium 132 L Potassium 4.7 Chloride 102 Carbon Dioxide 24 BUN 45 H Creatinine 2.66 H Glucose 89 Calcium 10.3 Medications Administered Current Inpatient Medications Acetaminophen (Acetaminophen 500 Mg Tab) 1,000 mg PO Q8H PRN PRN Reason: nausea/vomiting Stop: 11/05/22 18:40 Last Admin: 10/10/22 12:26 Dose: 1,000 mg Amlodipine Besylate (Amlodipine Besylate 5 Mg Tab) 10 mg PO QAM [facility] Stop: 11/08/22 00:39 Last Admin: 10/16/22 09:27 Dose: 10 mg Calcium Carbonate (Calcium Carbonate 500 Mg Chewable Tab) 1,500 mg PO Q6H PRN PRN Reason: Indigestion Stop: 11/09/22 16:39 Last Admin: 10/10/22 17:24 Dose: 1,500 mg Clonidine HCl (Clonidine Hcl 0.1 Mg Tab) 0.1 mg PO BID [facility] Stop: 11/12/22 11:59 Last Admin: 10/16/22 09:27 Dose: 0.1 mg Enoxaparin Sodium (Enoxaparin Inj 40 Mg/0.4 Ml Syr) 40 mg SQ QAM [facility] Stop: 11/06/22 08:59 Last Admin: 10/16/22 09:27 Dose: 40 mg Famotidine (Famotidine 10 Mg Tablet) 10 mg PO BID [facility] Stop: 11/10/22 08:59 Last Admin: 10/16/22 09:27 Dose: 10 mg Hydralazine HCl (Hydralazine Hcl 20 Mg/Ml Vial) 5 mg IV Q6H PRN PRN Reason: systolic bp > 160 Stop: 11/07/22 07:40 Last Admin: 10/11/22 03:50 Dose: 5 mg Hydralazine HCl (Hydralazine Tab 50 Mg Tab) 100 mg PO BID [facility] Stop: 11/15/22 20:59 Labetalol HCl (Labetalol Hcl 300 Mg Tab) 300 mg PO BID [facility] Stop: 11/15/22 20:59 Lorazepam (Lorazepam 0.5 Mg Tab) 0.5 mg PO TID PRN PRN Reason: Anxiety Stop: 11/09/22 19:42 Morphine Sulfate (Morphine Sulfate 4 Mg/Ml 1 Ml Carp\Vial) 4 mg IV Q4H PRN PRN Reason: severe pain (7+) Stop: 10/20/22 18:40 Last Admin: 10/06/22 20:02 Dose: 4 mg Ondansetron HCl (Ondansetron Inj 2 Mg/Ml 2 Ml Vial) 4 mg IV Q6H PRN PRN Reason: Nausea Stop: 11/05/22 18:40 Oxycodone HCl (Oxycodone Hcl Ir 5 Mg Tab (Immediate Release)) 5 mg PO Q6H PRN PRN Reason: severe pain (7+) Stop: 10/20/22 18:40 Last Admin: 10/08/22 08:54 Dose: 5 mg Polyethylene Glycol (Polyethylene (Miralax) 17 Gm Pack) 17 gm PO DAILY PRN PRN Reason: Constipation Stop: 11/05/22 18:40
[2022-10-16] MEDS ORDERED: hydrALAZINE TAB 50 MG TAB PO SCH (21:00)
[2022-10-16] MEDS ORDERED: LABETALOL HCL 300 MG TAB PO SCH (21:00)
--- NOTE | 2022-10-17 16:53 | Discharge Summary ---
Date of Service October 17, 2022 Admission HPI Per Admitting Provider 37 yo M with a h/o gout and hypertension presents with worsening left knee and ankle pain consistent with a gout flare over the past 24 hours. He is unable to walk on the left foot 2/2 pain. He reports being out of his lisinopril and amlodipine in the past month. He has also been out of his allopurinol. Blood pressure is currently 218/134 and labetalol 10mg IV has been ordered. This wasn't given when I arrived in the room and recheck of his BP was 228/152 on the right arm with 12 size cuff, 205/131 on the left arm (initial BP taken with a cuff too small). He was given solumedrol 125mg IV, Percocet 5/325mg PO x 1 tab, and 500cc NSS in the ER and reports feeling the pain is much improved. States that he has noticed increased ROM of his left knee since arriving in the ER. 2-3 episodes of loose stool overnight but nothing today denies blood per rectum. denies NOVOA, chest pain, fevers, chills denies chest pain, shortness of breath. Medications were reviewed. He did look up the number to his [employer], however, this happened to be his friend's number instead. We discussed the option of the [employer] $4 list and he verbalized appreciation. Admission Exam Per Admitting Provider Physical Exam: CONSTITUTIONAL: WNWD, vitals as above, generally well-appearing, NAD EYES: normal conjunctivae, no scleral icterus ENT: external ear and nose normal, MMM NECK: trachea midline RESPIRATORY: clear to auscultation bilaterally, no crackles, rales or wheezes, normal respiratory effort CARDIOVASCULAR: regular rate and rhythm, S1 and 2 heard without murmurs, gallops or rubs, no JVD, no peripheral edema CHEST: inspection of chest was normal GASTROINTESTINAL: soft, nontender, ND, no guarding MUSCULOSKELETAL: strength 5/5 throughout, head is normocephalic and atraumatic, L KNEE: no TTP of the joint with no gross effusion present, minimal limitation in flexion/extension (can bed around 45 degrees in reclined position) L ANKLE: erythema around the lateral malleolus, generalized swelling of the ankle. No 1MTP pain, no other joints are painful or swollen in the left foot, limited ROM in all planes motion of left ankle. Cannot bear weight 2/2 pain. SKIN: warm and dry, as noted above. NEUROLOGIC: CN 2-12 grossly intact, no sensory deficit, normal cognition, normal speech, no tremor PSYCHIATRIC: alert cooperative and oriented to person, place and time. Euthymic mood, makes good eye contact, language grossly intact, recent and remote memory grossly intact. Principal Diagnosis UNCONTROLLED HYPERTENSION CHRONIC KIDNEY DISEASE ACUTE GOUT ATTACK Discharge Exam Lying in bed comfortably Constitutional well developed, well nourished and + obese; not ill appearing Eyes PERRL, conjunctivae normal, anicteric sclerae ENMT external ear and nose normal, oropharynx normal Neck trachea midline, no thyromegaly Respiratory no respiratory distress Auscultation: lungs clear to auscultation bilaterally Cardiovascular Rate/Rhythm: regular rate and regular rhythm; not tachycardic Heart Sounds: normal S1 and normal S2; no murmur Extremities: no edema Gastrointestinal (Abdomen) Inspection/Auscultation: normal bowel sounds; abdomen not distended Percussion/Palpation: abdomen soft; abdomen nontender Neurologic normal touch/pain/proprioception and moves all extremities; no focal motor deficits Psychiatric A+Ox3, euthymic affect Lymphatic no cervical or axillary lymphadenopathy Discharge Data Allergies Allergy/AdvReac Type Severity Reaction Status Date / Time No Known Allergies Allergy Unverified 10/06/22 13:58 Consultations 10/06/22 16:05 ED Decision to Admit Stat 10/06/22 16:13 Consult Orthopedic Surgery Routine 10/08/22 07:38 Consult Nephrology Routine Ordered Studies 10/09/22 16:08 US renal/blad retro comp Routine Hospital Course (1) Hypertensive urgency: (1) Hypertensive urgency: Plan: Admitted with worsening left knee and ankle pain secondary to gout and noted to have very high blood pressure in the emergency room at 218/134 He was not taking his lisinopril and amlodipine for the last month Received intravenous labetalol and is started on his usual home radiation regimen Nephrology consulted-appreciate input and recommendation Suspecting hyperaldosteronism given low potassium longstanding hypertension Received indapamide which was stopped on 10/12/2022 Started on spironolactone, clonidine, losartan, amlodipine, hydralazine and labetalol Echo: severe concentric LVH Kidney US: no obstruction Blood pressure has been running around 120s to 130s systolic but creatinine has been going up Appreciate nephrology follow-up today and losartan, spironolactone and potassium supplements were stopped You will receive 1000 mL of normal saline infusion Monitor PRP-if creatinine improving will be sent home tomorrow Will need follow-up with nephrology as an outpatient within 1 week Kidney function is improving and the blood pressure remains controlled with current medications He will be discharged home this afternoon Strongly advised to take medications regularly and keep follow-up appointments with the providers (2) Gout attack: Plan: Resolved with IV solumedrol, prednisone and colchicine (3) Acute renal failure: Plan: Unknown baseline creatinine with creatinine 1.75 on admission. management per above Creatinine has been going up and it went up to 2.83 as of 10/15/2022 Medications updated and will monitor PRP Creatinine is 2.66 today (4) Hypokalemia: Plan: Replaced (5) Hyperlipidemia: Plan: h/o atorvastatin usage. Hold on restarting this for now to minimize any medications interactions or side effects while initiating acute treatment. Recommend establishing care in the area and following up with a primary care physician at discharge. Will perform screening for diabetes with A1C given risk factors for this including obesity, hypertension and hyperlipidemia. Lovenox Full Code plan of care discussed with patient in detail all questions answered he is understanding, agreeable, comfortable with the plan of care Discussed with the patient and the in the room Discharged home this afternoon Total Time Total Time Spent Total Time Spent (In Minutes): 35 minutes Discharge Plan Discharge Items Patient Disposition: Home - Self-Care Reason For Visit: HYPERTENSIVE URGENCY,ACUTE RENAL FAILURE Discharge Diagnosis: UNCONTROLLED HYPERTENSION CHRONIC KIDNEY DISEASE ACUTE GOUT ATTACK Activity: As commented below Lifting: Wait until after follow-up appointment Exercise/Sports: Wait until after follow-up appointment Driving/Machine Use: No driving until re-evaluated and allowed by Primary Care Physician Non-emergency contact: Primary Care Provider Call non-emergency contact if: you have any medication questions, your symptoms worsen, your pain is not controlled, your pain is worsening, your pain is unusual for you, your pain is concerning for you and you have a fever Follow-up/Referrals: [facility] [Other] (Please call to set up an appointment if you [facility] not [facility]. [address], [place] [address] ) Leyla Albert MD, PhD [Physician] - 10/21/22 12:45 pm Chiquis Emanuel CRNP [Outside Practitioners] - (Date & Time 10/17/2022 10:00 AM Provider ROBIN Goldman Department Family Practice [facility] *Please use the [employer] card that was provided to you to help with prescription costs.* ) Diet: Heart Healthy Addtl Attending Provider Instructions: PLEASE REFER TO YOUR NEW MEDICATION LIST AND FOLLOW INSTRUCTIONS CAREFULLY. YOUR NEW MEDICATIONS INCLUDE: AMLODIPINE LABETALOL CLONIDINE HYDRALAZINE -Blood pressure medications POTASSIUM SUPPLEMENT REDUCE ALLOPURINOL FROM 300 TO 50 MG DAILY. Do not use medications under the class of NSAIDs including ibuprofen, naproxen, meloxicam, etc. Always consult with your doctor first prior to starting any new medication. Stay well-hydrated. Take your blood pressure reading twice a day. Record the readings and bring your record on follow-up visit with your primary care physician and kidney specialist. If your blood pressure is consistently above 160 (top number), call your primary care physician for advice or return to the ER immediately. No red meat, organ meat, alcohol, shellfish to prevent gout attacks. PLEASE CALL YOUR PRIMARY CARE PHYSICIAN OR RETURN TO THE ER IF WITH WORSENING OF SYMPTOMS, INCLUDING Chest pain, shortness of breath, dizziness, nausea, weakness, blurring of vision, problems with urination, leg swelling, etc. PLEASE ESTABLISH WITH A PRIMARY CARE PHYSICIAN AT [facility], AND FOLLOW-UP WITH THEM IN 1 WEEK. FOLLOW-UP WITH THE KIDNEY SPECIALIST DR. KEATING AT [facility] OUTLINED ABOVE. Pending Studies at Discharge: Yes Studies:: Repeat blood work including basic metabolic profile on follow-up visit with your primary care physician or cuff turner machine operator. Stand-Alone Forms: [employer], Work/School Release, Smoking Cessation Medications and DC Order Prescriptions: New clonidine HCl 0.1 mg Tablet 0.1 mg PO BID 30 Days Qty: 60 2RF amlodipine [Norvasc] 5 mg Tablet 10 mg PO QAM 30 Days Qty: 60 2RF allopurinol 100 mg tablet 50 mg PO DAILY Qty: 30 2RF labetalol 300 mg Tablet 300 mg PO BID Qty: 60 0RF hydralazine 100 mg tablet 100 mg PO BID Qty: 60 0RF Continued atorvastatin 20 mg Tablet 20 mg PO DAILY Discontinued amlodipine 5 mg Tablet 5 mg PO DAILY allopurinol 300 mg Tablet 300 mg PO DAILY lisinopril 40 mg Tablet 40 mg PO DAILY Discharge Orders: Discharge Order (Routine); Ordered 10/16/22 Ordered By: Kanchan Haider/Other Patient Handouts: Tips for Using Less Salt, Low-Salt Choices, Hypertension and Kidney Disease, Low Salt Diet Dc Admission Data Admit Date/Time: 10/06/22 16:13 Attending Provider: Kanchan Menon Admit Provider: Vikki Turner Primary Care Provider: PCP,NO Other Providers: Leif Valverde ; Vikki Turner ; Leyla Albert ; Jasper Tran ; Jim Kothari Other Interventions: Discharge Summary Assessment (RN) Last Done: 10/16/22 11:41
== END 2022-10-16 12:42 | disposition home or self-care (01) | DRG 305 ==
LOC: ED 10:26 → SUATTDRO 16:13 → 2S 16:13